=== PATIENT | female | born 1990 | race Caucasian/White ===

== ENCOUNTER 2018-12-09 11:25 | Inpatient (IN) | payer OTHER ==
[2018-12-09] MEDS ORDERED: Misoprostol 25 MCG (1/4 of 100 MCG) Tab VAG PRN ×2 (18:54)
[2018-12-09] MEDS ORDERED: Misoprostol 25 MCG (1/4 of 100 MCG) Tab PO PRN ×2 (18:54)
[2018-12-09] MEDS ORDERED: Terbutaline 1 MG/ML SDV SUBCUT PRN (18:54)
[2018-12-09] MEDS ORDERED: Water For Irrigation,Sterile 1,000 ML Container IRR PRN (18:58)
[2018-12-09] MEDS ORDERED: Misoprostol 200 MCG Tab PO PRN (18:58)
[2018-12-09] MEDS ORDERED: Sodium Chloride 0.9% 2.5 ML Syringe FLUSH PRN (18:58)
[2018-12-09] MEDS ORDERED: Tranexamic Acid 1,000 MG in Sodium Chloride 0.9% 100 ML IV PRN (18:58)
[2018-12-09] MEDS ORDERED: Butorphanol 1 MG/ML SDV IVPUSH PRN (18:58)
[2018-12-09] MEDS ORDERED: Methylergonovine 0.2 MG/1 ML Amp IM PRN (18:58)
[2018-12-09] MEDS ORDERED: Sodium Chloride 0.9% 10 ML Syringe FLUSH PRN (18:58)
[2018-12-09] MEDS ORDERED: Carboprost Tromethamine 250 MCG/1 ML Amp IM PRN (18:58)
[2018-12-09] MEDS ORDERED: Lidocaine 1% 50 ML MDV INJECT PRN (18:58)
[2018-12-09] MEDS ORDERED: Sodium Chloride 0.9% 10 ML SDV IV PRN (18:58)
[2018-12-09] MEDS ORDERED: Nalbuphine 10 MG/1 ML Vial IVPUSH PRN (18:58)
[2018-12-09] MEDS ORDERED: Oxytocin/0.9 % Sodium Chloride 30 UNIT/500 ML BAG IV SCH ×2 (19:00)
[2018-12-09] MEDS: Lactated Ringers 1,000 ML IV SCH ×2 (19:22→23:21)
--- NOTE | 2018-12-09 21:55 | PCM.LDHP ---
L&D History of Present Illness - General Date of Service: 12/09/18 Admit Problem/Dx: Patient Status Order with Admit Dx/Problem 12/09/18 18:58 Patient Status [ADT] Routine Admission Diagnosis/Problem Admission Diagnosis/Problem Elective induction of labor planned 12/09/18 21:51 28yo EDC 12/03/2018 40 6/7wks A+, RI, GBS neg. IOL but berhane well. Source of Information: Patient History Limitations: Reports: No Limitations - History of Present Illness Improves with: Reports: None Worsens with: Reports: None Associated Symptoms: Reports: N - Related Data Allergies/Adverse Reactions: Allergies Allergy/AdvReac Type Severity Reaction Status Date / Time No Known Allergies Allergy Verified 12/09/18 18:54 Home Medications: Home Meds PNV95/Ferrous Fumarate/FA [ Tablet] 1 tab PO DAILY 09/29/18 [History] Past Medical History HEENT History: Reports: Impaired Vision, Other (See Below) Other HEENT History: myopia, wears glasses Cardiovascular History: Reports: None Respiratory History: Reports: None Gastrointestinal History: Reports: Colon Polyp, Gastritis, Hemorrhoids, PUD, Other (See Below) Other Gastrointestinal History: hematochezia, blood in stool, fatty liver, gastric ulcer, high grade dysplasia in colonic adenoma Genitourinary History: Reports: None, UTI, Recurrent 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: 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, Other (See Below) Other OB/BYN History: irreg menses Musculoskeletal History: Reports: Back Pain, Chronic Neurological History: Reports: Headaches, Chronic Psychiatric History: Reports: None, Other (See Below) Other Psychiatric History: atypical nevi Endocrine/Metabolic History: Reports: Other (See Below) Other Endocrine/Metabolic History: fatigue Hematologic History: Reports: None Immunologic History: Reports: None Oncologic (Cancer) History: Reports: None - Past Surgical History Head Surgeries/Procedures: Reports: None HEENT Surgical History: Reports: Oral Surgery, Other (See Below) Other HEENT Surgeries/Procedures: teeth extraction Cardiovascular Surgical History: Reports: None GI Surgical History: Reports: Colonoscopy, EGD Female Surgical History: Reports: None Male Surgical History: Reports: None Endocrine Surgical History: Reports: None Neurological Surgical History: Reports: None Dermatological Surgical History: Reports: Other (See Below) Social & Family History - Caffeine Use Caffeine Use: Reports: Coffee H&P Review of Systems - Review of Systems: Review Of Systems: See Below General: Reports: No Symptoms HEENT: Reports: No Symptoms Pulmonary: Reports: No Symptoms Cardiovascular: Reports: No Symptoms Gastrointestinal: Reports: No Symptoms Genitourinary: Reports: No Symptoms Musculoskeletal: Reports: No Symptoms Skin: Reports: No Symptoms Psychiatric: Reports: No Symptoms Neurological: Reports: No Symptoms Hematologic/Lymphatic: Reports: No Symptoms Immunologic: Reports: No Symptoms L&D Exam - Exam Exam: See Below - Vital Signs Weight: 122.47 kg - OB Specific Contraction Intensity: Moderate Movement: Active Heart Tones: Present Heart Tones per Min: 150 Heart Rate (FHR) Variability: Moderate (6-25 bmp) Presentation: Vertex - Su Score Su Score Cervix Position: Midposition Su Score Consistency: Soft Su Score Effacement: 51-70% Su Score Dilation: 3-4 cm Su Score 's Station: -2 Su Score Total: 8 - Exam General: Alert, Oriented, Cooperative HEENT: Hearing Intact Lungs: Normal Respiratory Effort GI/Abdominal Exam: Soft Rectal Exam: Deferred Genitourinary: Cervical dilitation Back Exam: Normal Inspection Extremities: Normal Inspection, Normal Range of Motion, Non-Tender, No Pedal Edema, Normal Capillary Refill Skin: Warm, Dry, Intact Neurological: Cranial Nerves Intact, Normal Speech, Normal Tone Psychiatric: Alert, Normal Affect, Normal Mood - Patient Data Lab Results Last 24 hrs: Laboratory Results - last 24 hr 12/09/18 12/09/18 Range/Units 19:37 19:37 WBC 14.33 H (4.0-11.0) K/uL RBC 4.41 (4.30-5.90) M/uL Hgb 12.0 (12.0-16.0) g/dL Hct 36.7 (36.0-46.0) % MCV 83.2 (80.0-98.0) fL MCH 27.2 (27.0-32.0) pg MCHC 32.7 (31.0-37.0) g/dL RDW Std Deviation 44.9 (28.0-62.0) fl RDW Coeff of Miki 15 (11.0-15.0) % Plt Count 207 (150-400) K/uL MPV 11.00 (7.40-12.00) fL Nucleated RBC % 0.0 /100WBC Nucleated RBCs # 0 K/uL Blood Type A POSITIVE Antibody Screen NEGATIVE Result Diagrams: 12/09/18 19:37 - Problem List (1) Supervision of normal IUP (intrauterine ) in primigravida SNOMED Code(s): 60503853, 867585294, 834134748, 252747419 ICD Code: Z34.00 - ENCNTR FOR SUPRVSN OF NORMAL FIRST , UNSP TRIMESTER Status: Acute Priority: High Current Visit: Yes Qualifiers: Trimester: third trimester Qualified Code(s): Z34.03 - Encounter for supervision of normal first , third trimester Problem List Initiated/Reviewed/Updated: Yes Orders Last 24hrs: Active Orders 24 hr Category Date Time Status Patient Status [ADT] Routine ADT 12/09/18 18:58 Active Communication Order [RC] ASDIRECTED Care 12/09/18 18:55 Active Communication Order [RC] ASDIRECTED Care 12/09/18 18:55 Active Communication Order [RC] ASDIRECTED Care 12/09/18 18:55 Active May Shower [RC] ASDIRECTED Care 12/09/18 18:58 Active Notify Provider [RC] PRN Care 12/09/18 18:55 Active Notify Provider [RC] PRN Care 12/09/18 18:55 Active Notify Provider [RC] PRN Care 12/09/18 18:58 Active Notify Provider [RC] STAT Care 12/09/18 18:55 Active Oxygen Therapy [RC] ASDIRECTED Care 12/09/18 18:55 Active Up ad Bettina [RC] ASDIRECTED Care 12/09/18 18:58 Active Vital Signs [RC] PER UNIT ROUTINE Care 12/09/18 18:58 Active Regular Diet [DIET] Diet 12/09/18 Dinner Active Butorphanol [Stadol] Med 12/09/18 18:58 Active 1 mg IVPUSH Q1H PRN Carboprost Tromethamine [Hemabate DS] Med 12/09/18 18:58 Active 250 mcg IM ASDIRECTED PRN Lactated Ringers [Ringers, Lactated] 1,000 ml Med 12/09/18 19:00 Active IV ASDIRECTED Lidocaine 1% [Xylocaine 1%] Med 12/09/18 18:58 Active 50 ml INJECT ONETIME PRN Methylergonovine [Methergine] Med 12/09/18 18:58 Active 0.2 mg IM ASDIRECTED PRN Nalbuphine [Nubain] Med 12/09/18 18:58 Active 10 mg IVPUSH Q1H PRN Oxytocin/0.9 % Sodium Chloride [Oxytocin 30 Unit/500 ML Med 12/09/18 19:00 Active -NS] 30 unit in 500 ml IV .ONCE Oxytocin/0.9 % Sodium Chloride [Oxytocin 30 Unit/500 ML Med 12/09/18 19:00 Active -NS] 30 unit in 500 ml IV TITRATE Sodium Chloride 0.9% [Normal Saline] Med 12/09/18 18:58 Active 10 ml IV ASDIRECTED PRN Sodium Chloride 0.9% [Saline Flush] Med 12/09/18 18:58 Active 10 ml FLUSH ASDIRECTED PRN Sodium Chloride 0.9% [Saline Flush] Med 12/09/18 18:58 Active 2.5 ml FLUSH ASDIRECTED PRN Terbutaline [Brethine] Med 12/09/18 18:54 Active 0.25 mg SUBCUT ASDIRECTED PRN Tranexamic Acid [Cyklokapron] 1,000 mg Med 12/09/18 18:58 Active Sodium Chloride 0.9% [Normal Saline] 100 ml IV ONETIME Water For Irrigation,Sterile [Sterile Water for Med 12/09/18 18:58 Active Irrigation] 1,000 ml IRR ASDIRECTED PRN miSOPROStol [Cytotec] Med 12/09/18 18:58 Active 200 mcg PO ONETIME PRN miSOPROStol [Cytotec] Med 12/09/18 18:54 Active 25 mcg PO ONETIME PRN miSOPROStol [Cytotec] Med 12/09/18 18:54 Active 25 mcg PO Q4H PRN miSOPROStol [Cytotec] Med 12/09/18 18:54 Active 25 mcg VAG ONETIME PRN miSOPROStol [Cytotec] Med 12/09/18 18:54 Active 25 mcg VAG Q4H PRN Scalp Electrode [WOMSER] Per Unit Routine Oth 12/09/18 18:58 Ordered Medication Administration Instruction [OM.PC] Q3H Oth 12/09/18 19:00 Ordered Peripheral IV Insertion Adult [OM.PC] Routine Oth 12/09/18 18:58 Ordered Resuscitation Status Routine Resus Stat 12/09/18 18:58 Ordered Medication Orders Butorphanol Tartrate (Stadol) 1 mg IVPUSH Q1H PRN PRN Reason: Pain Carboprost Tromethamine (Hemabate Ds) 250 mcg IM ASDIRECTED PRN PRN Reason: Post Hemorrhage Oxytocin/Sodium Chloride (Oxytocin 30 Unit/500 Ml-Ns) 30 unit in 500 mls @ 2 mls/hr IV TITRATE YANET; Protocol Lactated Ringer's (Ringers, Lactated) 1,000 mls @ 150 mls/hr IV ASDIRECTED YANET Last Admin: 12/09/18 19:22 Dose: 150 mls/hr Oxytocin/Sodium Chloride (Oxytocin 30 Unit/500 Ml-Ns) 30 unit in 500 mls @ 500 mls/hr IV .ONCE YANET Tranexamic Acid 1,000 mg/ (Sodium Chloride) 110 mls @ 660 mls/hr IV ONETIME PRN PRN Reason: Bleeding Lidocaine HCl (Xylocaine 1%) 50 ml INJECT ONETIME PRN PRN Reason: Laceration repair Methylergonovine Maleate (Methergine) 0.2 mg IM ASDIRECTED PRN PRN Reason: Post Hemorrhage Misoprostol (Cytotec) 25 mcg VAG ONETIME PRN PRN Reason: Cervical Ripening Misoprostol (Cytotec) 25 mcg VAG Q4H PRN PRN Reason: Cervical Ripening Misoprostol (Cytotec) 25 mcg PO ONETIME PRN PRN Reason: Cervical Ripening Misoprostol (Cytotec) 25 mcg PO Q4H PRN PRN Reason: Cervical Ripening Misoprostol (Cytotec) 200 mcg PO ONETIME PRN PRN Reason: Post Hemorrhage Nalbuphine HCl (Nubain) 10 mg IVPUSH Q1H PRN PRN Reason: Pain (severe 7-10) Sodium Chloride (Saline Flush) 10 ml FLUSH ASDIRECTED PRN PRN Reason: Keep Vein Open Sodium Chloride (Saline Flush) 2.5 ml FLUSH ASDIRECTED PRN PRN Reason: Keep Vein Open Sodium Chloride (Normal Saline) 10 ml IV ASDIRECTED PRN PRN Reason: IV Use Sterile Water (Sterile Water For Irrigation) 1,000 ml IRR ASDIRECTED PRN PRN Reason: delivery Terbutaline Sulfate (Brethine) 0.25 mg SUBCUT ASDIRECTED PRN PRN Reason: Tacysystole Assessment/Plan Comment:: IOL A: 28yo EDC 12/03/2018 40 6/7wks A+, RI, GBS neg. IOL but berhane well. P: Admit, epidural now, anticipate . Dr Ng updated.
--- NOTE | 2018-12-09 23:22 | PCM.PREANE ---
Preanesthetic Assessment - Anesthesia/Transfusion/Family Hx Anesthesia History: Prior Anesthesia Without Reaction Family History of Anesthesia Reaction: No Transfusion History: No Prior Transfusion(s) - Review of Systems General: No Symptoms Pulmonary: No Symptoms Cardiovascular: No Symptoms, Orthopnea Gastrointestinal: No Symptoms Neurological: No Symptoms Other: Reports: None - Physical Assessment Height: 5 ft 6 in Weight: 123.377 kg ASA Class: 2 Mental Status: Alert & Oriented x3 Airway Class: Mallampati = 2 Dentition: Reports: Normal Dentition Thyro-Mental Finger Breadths: 3 Mouth Opening Finger Breadths: 3 ROM/Head Extension: Full Lungs: Clear to Auscultation, Normal Respiratory Effort Cardiovascular: Regular Rate, Regular Rhythm - Lab Values: Laboratory Last Values WBC 14.33 K/uL (4.0-11.0) H 12/09/18 19:37 RBC 4.41 M/uL (4.30-5.90) 12/09/18 19:37 Hgb 12.0 g/dL (12.0-16.0) 12/09/18 19:37 Hct 36.7 % (36.0-46.0) 12/09/18 19:37 MCV 83.2 fL (80.0-98.0) 12/09/18 19:37 MCH 27.2 pg (27.0-32.0) 12/09/18 19:37 MCHC 32.7 g/dL (31.0-37.0) 12/09/18 19:37 RDW Std Deviation 44.9 fl (28.0-62.0) 12/09/18 19:37 RDW Coeff of Miki 15 % (11.0-15.0) 12/09/18 19:37 Plt Count 207 K/uL (150-400) 12/09/18 19:37 MPV 11.00 fL (7.40-12.00) 12/09/18 19:37 Nucleated RBC % 0.0 /100WBC 12/09/18 19:37 Nucleated RBCs # 0 K/uL 12/09/18 19:37 Blood Type A POSITIVE 12/09/18 19:37 Antibody Screen NEGATIVE 12/09/18 19:37 - Allergies Allergies/Adverse Reactions: Allergies Allergy/AdvReac Type Severity Reaction Status Date / Time No Known Allergies Allergy Verified 12/09/18 18:54 - Acknowledgements Anesthesia Type Planned: Epidural Pt an Appropriate Candidate for the Planned Anesthesia: Yes Alternatives and Risks of Anesthesia Discussed w Pt/Guardian: Yes Pt/Guardian Understands and Agrees with Anesthesia Plan: Yes PreAnesthesia Questionnaire HEENT History: Reports: Impaired Vision, Other (See Below) Other HEENT History: myopia, wears glasses Cardiovascular History: Reports: None Respiratory History: Reports: None Gastrointestinal History: Reports: Colon Polyp, Gastritis, GERD, Hemorrhoids, PUD, Other (See Below) Other Gastrointestinal History: hematochezia, blood in stool, fatty liver, gastric ulcer, high grade dysplasia in colonic adenoma Genitourinary History: Reports: None, UTI, Recurrent 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: 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, Other (See Below) Other OB/BYN History: irreg menses Musculoskeletal History: Reports: Back Pain, Chronic Neurological History: Reports: Headaches, Chronic Psychiatric History: Reports: None, Other (See Below) Other Psychiatric History: atypical nevi Endocrine/Metabolic History: Reports: Obesity/BMI 30+, Other (See Below) Other Endocrine/Metabolic History: fatigue Hematologic History: Reports: None Immunologic History: Reports: None Oncologic (Cancer) History: Reports: None Dermatologic History: Reports: None - Infectious Disease History Infectious Disease History: Reports: None - Past Surgical History Head Surgeries/Procedures: Reports: None HEENT Surgical History: Reports: Oral Surgery, Other (See Below) Other HEENT Surgeries/Procedures: teeth extraction Cardiovascular Surgical History: Reports: None GI Surgical History: Reports: Colonoscopy, EGD Female Surgical History: Reports: None Endocrine Surgical History: Reports: None Neurological Surgical History: Reports: None Dermatological Surgical History: Reports: Other (See Below) - SUBSTANCE USE Smoking Status *Q: Never Smoker Second Hand Smoke Exposure: No Recreational Drug Use History: No - HOME MEDS Home Medications: Home Meds PNV95/Ferrous Fumarate/FA [ Tablet] 1 tab PO DAILY 09/29/18 [History] - CURRENT (IN HOUSE) MEDS Current Meds: Current Medications Butorphanol Tartrate (Stadol) 1 mg IVPUSH Q1H PRN PRN Reason: Pain Carboprost Tromethamine (Hemabate Ds) 250 mcg IM ASDIRECTED PRN PRN Reason: Post Hemorrhage Oxytocin/Sodium Chloride (Oxytocin 30 Unit/500 Ml-Ns) 30 unit in 500 mls @ 2 mls/hr IV TITRATE YANET; Protocol Lactated Ringer's (Ringers, Lactated) 1,000 mls @ 150 mls/hr IV ASDIRECTED YANET Last Admin: 12/09/18 19:22 Dose: 150 mls/hr Oxytocin/Sodium Chloride (Oxytocin 30 Unit/500 Ml-Ns) 30 unit in 500 mls @ 500 mls/hr IV .ONCE YANET Tranexamic Acid 1,000 mg/ (Sodium Chloride) 110 mls @ 660 mls/hr IV ONETIME PRN PRN Reason: Bleeding Lidocaine HCl (Xylocaine 1%) 50 ml INJECT ONETIME PRN PRN Reason: Laceration repair Methylergonovine Maleate (Methergine) 0.2 mg IM ASDIRECTED PRN PRN Reason: Post Hemorrhage Misoprostol (Cytotec) 25 mcg VAG ONETIME PRN PRN Reason: Cervical Ripening Misoprostol (Cytotec) 25 mcg VAG Q4H PRN PRN Reason: Cervical Ripening Misoprostol (Cytotec) 25 mcg PO ONETIME PRN PRN Reason: Cervical Ripening Misoprostol (Cytotec) 25 mcg PO Q4H PRN PRN Reason: Cervical Ripening Misoprostol (Cytotec) 200 mcg PO ONETIME PRN PRN Reason: Post Hemorrhage Nalbuphine HCl (Nubain) 10 mg IVPUSH Q1H PRN PRN Reason: Pain (severe 7-10) Sodium Chloride (Saline Flush) 10 ml FLUSH ASDIRECTED PRN PRN Reason: Keep Vein Open Sodium Chloride (Saline Flush) 2.5 ml FLUSH ASDIRECTED PRN PRN Reason: Keep Vein Open Sodium Chloride (Normal Saline) 10 ml IV ASDIRECTED PRN PRN Reason: IV Use Sterile Water (Sterile Water For Irrigation) 1,000 ml IRR ASDIRECTED PRN PRN Reason: delivery Terbutaline Sulfate (Brethine) 0.25 mg SUBCUT ASDIRECTED PRN PRN Reason: Tacysystole
[2018-12-09] MEDS ORDERED: Lidocaine HCl/EPINEPHrine 5 ML IJ ONE (23:25)
[2018-12-10] MEDS: Lactated Ringers 1,000 ML IV SCH (00:35)
[2018-12-10] MEDS ORDERED: Bupivacaine 0.5% 10 ML SDV ONE (06:34)
[2018-12-10] MEDS ORDERED: Acetaminophen 500 MG Tab ONE (13:34)
[2018-12-10] MEDS ORDERED: Ibuprofen 800 MG Tab PO PRN (14:04)
[2018-12-10] MEDS ORDERED: oxyCODONE 5 MG Tab PO PRN (14:04)
[2018-12-10] MEDS ORDERED: Ibuprofen 400 MG Tab PO PRN (14:04)
[2018-12-10] MEDS ORDERED: Witch Hazel Medicated Pads 40/Jar TOP PRN (14:04)
[2018-12-10] MEDS ORDERED: Acetaminophen 500 MG Tab PO PRN ×2 (14:04)
[2018-12-10] MEDS ORDERED: Docusate Sodium 100 MG Cap PO PRN (14:04)
[2018-12-10] MEDS ORDERED: Lanolin 100% Cream 7 GM Tube TOP PRN (14:04)
[2018-12-10] MEDS ORDERED: Benzocaine/Menthol 20%-0.5% Spray 78 GM Cannister TOP PRN (14:04)
[2018-12-10] MEDS ORDERED: Bisacodyl 10 MG Supp RECTAL PRN (14:04)
--- NOTE | 2018-12-10 14:55 | OR ---
SURGEON: rBy Ng MD DATE OF PROCEDURE: DELIVERY NOTE: Ms. Wilkes is 28-year-old primigravida. She is followed in our clinic primarily by me. She is 40+ weeks. She is admitted for induction and she responded to that, and she went into active labor. In the morning when I examined the patient, she was almost complete with bulging bag of water. I did an amniotomy with clear fluid and heart rate was essentially normal, vital signs were essentially normal, and the patient had epidural. Soon after that, the patient became complete-complete and she commenced pushing, and she pushed in excess of 2.5 hours. At that time, I was called to evaluate the patient. At the time I evaluated her, she was complete vertex, +2, almost +3, and the patient showed sign of exhaustion. After consultation with the parent, we agreed to do a vacuum extraction. I used kiwi vacuum instruction and the fetus was delivered with a kiwi instruction with 2 pull without any problem. Male fetus. score reported to be 8 and 9, and the weight is , and the placenta delivered spontaneous, complete, and intact. There was a small lateral labial laceration on the left labia that was repaired with 3-0 Vicryl without any problem. There is no perineal or any other laceration. The estimated blood loss during this delivery is 350-400 mL. heart rate was category 1 through the entire process of labor. There was no complication in the labor or the . BLAIRE / ISIDRO /[id number]
[2018-12-11 04:33] VITALS: BP 146/81
--- NOTE | 2018-12-11 08:54 | PCM48HPAN ---
Post Anesthesia Note - EVALUATION WITHIN 48HRS OF ANESTHETIC Vital Signs in Normal Range: Yes Patient Participated in Evaluation: Yes Respiratory Function Stable: Yes Airway Patent: Yes Cardiovascular Function Stable: Yes Hydration Status Stable: Yes Pain Control Satisfactory: Yes Nausea and Vomiting Control Satisfactory: Yes Mental Status Recovered: Yes Resp Rate: 17 - COMMENTS/OBSERVATIONS Free Text/Narrative:: Denies any complaints
--- NOTE | 2018-12-11 09:54 | PCM.DCSUM1 ---
Discharge Summary - Hospital Course Free Text/Narrative:: Discharge home with infant. Follow up in 6 weeks for visit. Diagnosis: Stroke: No - Discharge Data Discharge Date: 12/11/18 Discharge Disposition: Home, Self-Care 01 Condition: Good - Discharge Diagnosis/Problem(s) (1) Supervision of normal IUP (intrauterine ) in primigravida SNOMED Code(s): 42833727, 617101644, 956188954, 520079835 ICD Code: Z34.00 - ENCNTR FOR SUPRVSN OF NORMAL FIRST , UNSP TRIMESTER Status: Acute Priority: High Current Visit: Yes Qualifiers: Trimester: third trimester Qualified Code(s): Z34.03 - Encounter for supervision of normal first , third trimester - Patient Instructions Diet: Usual Diet as Tolerated Activity: As Tolerated, No Strenuous Activities, Rest and Relax Today Driving: May Drive Today Showering/Bathing: May Shower Notify Provider of: Fever, Increased Pain, Swelling and Redness, Nausea and/or Vomiting - Discharge Plan *PRESCRIPTION DRUG MONITORING PROGRAM REVIEWED*: Not Applicable *COPY OF PRESCRIPTION DRUG MONITORING REPORT IN PATIENT AYANNA: Not Applicable Home Medications: Home Meds PNV95/Ferrous Fumarate/FA [ Tablet] 1 tab PO DAILY 09/29/18 [History] Oxygen Therapy Mode: Room Air Referrals: [facility] [Outside] Bry Ng MD [Physician] - 01/24/19 9:30 am - Discharge Summary/Plan Comment DC Time >30 min.: Yes - General Info Date of Service: 12/11/18 Admission Dx/Problem (Free Text: Patient Status Order with Admit Dx/Problem 12/09/18 18:58 Patient Status [ADT] Routine Admission Diagnosis/Problem Admission Diagnosis/Problem Elective induction of labor planned 12/09/18 21:51 28yo EDC 12/03/2018 40 6/7wks A+, RI, GBS neg. IOL but berhane well. Functional Status: Reports: Pain Controlled, Tolerating Diet, Ambulating, Urinating - Review of Systems General: Reports: No Symptoms HEENT: Reports: No Symptoms Pulmonary: Reports: No Symptoms Cardiovascular: Reports: No Symptoms Gastrointestinal: Reports: No Symptoms Genitourinary: Reports: No Symptoms Musculoskeletal: Reports: No Symptoms Skin: Reports: No Symptoms Neurological: Reports: No Symptoms Psychiatric: Reports: No Symptoms - Patient Data Vitals - Most Recent: Last Vital Signs Temp 36.3 C 12/11/18 04:32 Pulse 92 12/11/18 04:32 Resp 17 12/11/18 08:54 BP 146/81 H 12/11/18 04:32 Pulse Ox 96 12/11/18 04:32 Weight - Most Recent: 123.377 kg Lab Results - Last 24 hrs: Laboratory Results - last 24 hr 12/11/18 Range/Units 05:24 Hgb 9.3 L (12.0-16.0) g/dL Hct 29.1 L (36.0-46.0) % Med Orders - Current: Current Medications Acetaminophen (Tylenol Extra Strength) 500 mg PO Q4H PRN PRN Reason: Pain Acetaminophen (Tylenol Extra Strength) 1,000 mg PO Q4H PRN PRN Reason: Pain Benzocaine/Menthol (Dermoplast Pain Relief 20%-0.5% [place]) 78 gm TOP ASDIRECTED PRN PRN Reason: Perineal Comfort Measure Bisacodyl (Dulcolax) 10 mg RECTAL ONETIME PRN PRN Reason: Constipation Docusate Sodium (Colace) 100 mg PO BID PRN PRN Reason: Constipation Last Admin: 12/10/18 23:00 Dose: 100 mg Emollient Ointment (Lansinoh Hpa) 0 gm TOP ASDIRECTED PRN PRN Reason: Sore Nipples Ibuprofen (Motrin) 400 mg PO Q4H PRN PRN Reason: Pain Ibuprofen (Motrin) 800 mg PO Q6H PRN PRN Reason: Pain Last Admin: 12/10/18 22:58 Dose: 800 mg Oxycodone HCl (Oxycodone) 5 mg PO Q2H PRN PRN Reason: Pain Witch Chani (Tucks) 1 pad TOP ASDIRECTED PRN PRN Reason: comfort care Discontinued Medications Acetaminophen (Tylenol Extra Strength) Confirm Administered Dose 1,000 mg .ROUTE .STK-MED ONE Stop: 12/10/18 13:35 Last Admin: 12/10/18 13:37 Dose: 1,000 mg Bupivacaine HCl (Sensorcaine-Mpf 0.5%) Confirm Administered Dose 10 ml .ROUTE .STK-MED ONE Stop: 12/10/18 06:35 Last Admin: 12/10/18 19:11 Dose: Not Given Butorphanol Tartrate (Stadol) 1 mg IVPUSH Q1H PRN PRN Reason: Pain Carboprost Tromethamine (Hemabate Ds) 250 mcg IM ASDIRECTED PRN PRN Reason: Post Hemorrhage Oxytocin/Sodium Chloride (Oxytocin 30 Unit/500 Ml-Ns) 30 unit in 500 mls @ 2 mls/hr IV TITRATE YANET; Protocol Last Titration: 12/10/18 03:54 Dose: 6 munits/min, 6 mls/hr Lactated Ringer's (Ringers, Lactated) 1,000 mls @ 150 mls/hr IV ASDIRECTED YANET Last Admin: 12/10/18 00:35 Dose: 150 mls/hr Oxytocin/Sodium Chloride (Oxytocin 30 Unit/500 Ml-Ns) 30 unit in 500 mls @ 500 mls/hr IV .ONCE YANET Tranexamic Acid 1,000 mg/ (Sodium Chloride) 110 mls @ 660 mls/hr IV ONETIME PRN PRN Reason: Bleeding Fentanyl/Bupivacaine HCl (Iizvoumw-Hrwte-Np 2 Mcg/Ml-0.125%) Confirm Administered Dose 100 mls @ as directed .ROUTE .STK-MED ONE Stop: 12/09/18 23:26 Last Admin: 12/10/18 19:12 Dose: Not Given Fentanyl/Bupivacaine HCl (Fpqxuash-Btnym-Cz 2 Mcg/Ml-0.125%) Confirm Administered Dose 100 mls @ as directed .ROUTE .STK-MED ONE Stop: 12/10/18 06:39 Last Admin: 12/10/18 19:12 Dose: Not Given Lidocaine HCl (Xylocaine 1%) 50 ml INJECT ONETIME PRN PRN Reason: Laceration repair Lidocaine/Epinephrine (Lidocaine 1.5%-Epi 1:200,000) Confirm Administered Dose 5 ml IJ .STK-MED ONE Stop: 12/09/18 23:26 Last Admin: 12/10/18 19:11 Dose: Not Given Methylergonovine Maleate (Methergine) 0.2 mg IM ASDIRECTED PRN PRN Reason: Post Hemorrhage Misoprostol (Cytotec) 25 mcg VAG ONETIME PRN PRN Reason: Cervical Ripening Misoprostol (Cytotec) 25 mcg VAG Q4H PRN PRN Reason: Cervical Ripening Misoprostol (Cytotec) 25 mcg PO ONETIME PRN PRN Reason: Cervical Ripening Misoprostol (Cytotec) 25 mcg PO Q4H PRN PRN Reason: Cervical Ripening Misoprostol (Cytotec) 200 mcg PO ONETIME PRN PRN Reason: Post Hemorrhage Nalbuphine HCl (Nubain) 10 mg IVPUSH Q1H PRN PRN Reason: Pain (severe 7-10) Sodium Chloride (Saline Flush) 10 ml FLUSH ASDIRECTED PRN PRN Reason: Keep Vein Open Sodium Chloride (Saline Flush) 2.5 ml FLUSH ASDIRECTED PRN PRN Reason: Keep Vein Open Sodium Chloride (Normal Saline) 10 ml IV ASDIRECTED PRN PRN Reason: IV Use Sterile Water (Sterile Water For Irrigation) 1,000 ml IRR ASDIRECTED PRN PRN Reason: delivery Terbutaline Sulfate (Brethine) 0.25 mg SUBCUT ASDIRECTED PRN PRN Reason: Tacysystole - Exam General: Reports: Alert, Oriented, Cooperative, No Acute Distress Lungs: Reports: Normal Respiratory Effort GI/Abdominal Exam: Soft (Female) Exam: Deferred, Vaginal Bleeding Rectal (Female) Exam: Deferred Back Exam: Reports: Normal Inspection Extremities: Normal Range of Motion, No Pedal Edema Skin: Reports: Warm, Dry, Intact Wound/Incisions: Reports: Healing Well Neurological: Reports: No New Focal Deficit, Normal Gait, Normal Speech, Normal Tone, Strength Equal Bilateral Psy/Mental Status: Reports: Alert, Normal Affect, Normal Mood
== END 2018-12-11 13:40 | disposition home or self-care (01) | DRG 807 ==
LOC: MW.OB 11:25 → UNDOADMOB 18:38 → OBSVTOIN 12-10 11:25 → MW.OB 12-10 18:00
PROVIDERS: ADMIT Obstetrics & Gynecology; ATTEND Obstetrics & Gynecology
PROC: 3E0P7VZ Introduction of Hormone into Female Reproductive, Via Natural or Artificial Opening (ICD-10-PCS; 2018-12-09)
PROC: 00HU33Z Insertion of Infusion Device into Spinal Canal, Percutaneous Approach (ICD-10-PCS; 2018-12-09)
PROC: 3E0R3BZ Introduction of Anesthetic Agent into Spinal Canal, Percutaneous Approach (ICD-10-PCS; 2018-12-09)
PROC: 10D07Z6 Extraction of Products of Conception, Vacuum, Via Natural or Artificial Opening (ICD-10-PCS; principal; 2018-12-10)
PROC: 10907ZC Drainage of Amniotic Fluid, Therapeutic from Products of Conception, Via Natural or Artificial Opening (ICD-10-PCS; 2018-12-10)
DX: O70.0 First degree perineal laceration during delivery (principal); Z37.0 Single live birth; Z3A.40 40 weeks gestation of pregnancy
CPT/HCPCS: 36415; 51702; 59025; 59409; 85014; 85018; 85027; 86850; 86900; 86901; A9270-GY; J2590; J3490; J7120

== ENCOUNTER 2019-07-21 11:56 | Day surgery (SDC) | payer OTHER ==
[~2019-07-21 11:56] MED LIST: Lactated Ringers 1,000 ML IV SCH; Sodium Chloride 0.9% 10 ML SDV IV PRN; Sodium Chloride 0.9% 10 ML Syringe FLUSH PRN; Sodium Chloride 0.9% 2.5 ML Syringe FLUSH PRN
--- NOTE | 2019-07-21 13:52 | PCM.PREANE ---
Preanesthetic Assessment - Anesthesia/Transfusion/Family Hx Anesthesia History: Prior Anesthesia Without Reaction Family History of Anesthesia Reaction: No Transfusion History: No Prior Transfusion(s) Intubation History: Unknown - Review of Systems General: No Symptoms Pulmonary: No Symptoms Cardiovascular: No Symptoms Gastrointestinal: Other (change in bowel habits, h/o colon polyps) Neurological: No Symptoms Other: Reports: None - Physical Assessment Vital Signs: Last Vital Signs Temp 36.9 C 07/21/19 12:00 Pulse 83 07/21/19 12:00 Resp 16 07/21/19 12:00 BP 134/56 L 07/21/19 12:00 Pulse Ox 96 07/21/19 12:00 Height: 5 ft 6 in Weight: 122.924 kg ASA Class: 2 Mental Status: Alert & Oriented x3 Airway Class: Mallampati = 1 Dentition: Reports: Normal Dentition Thyro-Mental Finger Breadths: 3 Mouth Opening Finger Breadths: 3 ROM/Head Extension: Full Lungs: Clear to Auscultation, Normal Respiratory Effort Cardiovascular: Regular Rate, Regular Rhythm - Lab Values: Laboratory Last Values Urine HCG, Qual NEGATIVE (NEGATIVE) 07/21/19 12:13 - Allergies Allergies/Adverse Reactions: Allergies Allergy/AdvReac Type Severity Reaction Status Date / Time No Known Allergies Allergy Verified 07/21/19 13:22 - Blood Blood Available: No - Anesthesia Plan Pre-Op Medication Ordered: None - Acknowledgements Anesthesia Type Planned: MAC Pt an Appropriate Candidate for the Planned Anesthesia: Yes Alternatives and Risks of Anesthesia Discussed w Pt/Guardian: Yes Pt/Guardian Understands and Agrees with Anesthesia Plan: Yes PreAnesthesia Questionnaire HEENT History: Reports: Other (See Below) Other HEENT History: wears glasses Cardiovascular History: Reports: None Respiratory History: Reports: None Gastrointestinal History: Reports: Colon Polyp, Gastritis, Hemorrhoids, PUD, Other (See Below) Other Gastrointestinal History: hx of high grade dysplasic colon polyp Genitourinary History: Reports: None 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: 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, Musculoskeletal History: Reports: Fracture Other Musculoskeletal History: fx arm as a child Neurological History: Reports: Migraines Psychiatric History: Reports: None Endocrine/Metabolic History: Reports: Obesity/BMI 30+ (BMI 43.7) Hematologic History: Reports: None Immunologic History: Reports: None Oncologic (Cancer) History: Reports: None Dermatologic History: Reports: None - Infectious Disease History Infectious Disease History: Reports: None - Past Surgical History Head Surgeries/Procedures: Reports: None HEENT Surgical History: Reports: Oral Surgery, Other (See Below) Other HEENT Surgeries/Procedures: teeth extraction Cardiovascular Surgical History: Reports: None Respiratory Surgical History: Reports: None GI Surgical History: Reports: Cholecystectomy, Colonoscopy (3 years ago), EGD Female Surgical History: Reports: None Endocrine Surgical History: Reports: None Neurological Surgical History: Reports: None Musculoskeletal Surgical History: Reports: None Dermatological Surgical History: Reports: Other (See Below) - SUBSTANCE USE Smoking Status *Q: Never Smoker - HOME MEDS Home Medications: Home Meds Ibuprofen 2 - 3 tab PO ASDIRECTED PRN 06/29/19 [History] Multivitamin [Multivitamins] 1 tab PO DAILY 07/18/19 [History] - CURRENT (IN HOUSE) MEDS Current Meds: Current Medications Lactated Ringer's (Ringers, Lactated) 1,000 mls @ 125 mls/hr IV ASDIRECTED [facility] Last Admin: 07/21/19 13:19 Dose: 125 mls/hr Sodium Chloride (Saline Flush) 10 ml FLUSH ASDIRECTED PRN PRN Reason: Keep Vein Open Sodium Chloride (Saline Flush) 2.5 ml FLUSH ASDIRECTED PRN PRN Reason: Keep Vein Open Sodium Chloride (Saline Flush) 10 ml FLUSH ASDIRECTED PRN PRN Reason: Keep Vein Open Sodium Chloride (Saline Flush) 2.5 ml FLUSH ASDIRECTED PRN PRN Reason: Keep Vein Open Sodium Chloride (Normal Saline) 10 ml IV ASDIRECTED PRN PRN Reason: IV Use
[2019-07-21] MEDS ORDERED: Propofol 200 MG/20 ML SDV ONE (14:37)
[2019-07-21] MEDS ORDERED: Midazolam 1 MG/ML 2 ML SDV ONE (14:37)
--- NOTE | 2019-07-21 15:23 | PCM.OPNOTE ---
- General Post-Op/Procedure Note Date of Surgery/Procedure: 07/21/19 Operative Procedure(s): Diagnostic colonoscopy Findings: Rectal polyp Pre Op Diagnosis: History of colon polyps Post-Op Diagnosis: rectal polyp Anesthesia Technique: MAC Primary Surgeon: Marjorie Rosales Condition: Good
[2019-07-21 15:25] VITALS: PULSE 78
[2019-07-21 15:30] VITALS: BP 95/52
--- NOTE | 2019-07-21 15:33 | PCM.POSTAN ---
POST ANESTHESIA ASSESSMENT - MENTAL STATUS Mental Status: Alert - VITAL SIGNS Vital Signs: Last Vital Signs Temp 36.9 C 07/21/19 12:00 Pulse 78 07/21/19 15:29 Resp 15 07/21/19 15:29 BP 95/52 L 07/21/19 15:29 Pulse Ox 96 07/21/19 15:29 - RESPIRATORY Respiratory Status: Respiratory Rate WNL - CARDIOVASCULAR CV Status: Pulse Rate WNL - GASTROINTESTINAL GI Status: No Symptoms - POST OP HYDRATION Hydration Status: Adequate & Stable
--- NOTE | 2019-07-21 15:50 | PCM48HPAN ---
Post Anesthesia Note - EVALUATION WITHIN 48HRS OF ANESTHETIC Vital Signs in Normal Range: Yes Patient Participated in Evaluation: Yes Respiratory Function Stable: Yes Airway Patent: Yes Cardiovascular Function Stable: Yes Hydration Status Stable: Yes Pain Control Satisfactory: Yes Nausea and Vomiting Control Satisfactory: Yes Mental Status Recovered: Yes Vital Signs: Last Vital Signs Temp 36.9 C 07/21/19 12:00 Pulse 78 07/21/19 15:29 Resp 15 07/21/19 15:29 BP 95/52 L 07/21/19 15:29 Pulse Ox 96 07/21/19 15:29 - COMMENTS/OBSERVATIONS Free Text/Narrative:: No anesthesia problems
--- NOTE | 2019-07-21 20:54 | OR ---
SURGEON: MARJORIE ROSALES MD DATE OF PROCEDURE: 07/21/2019 PREOPERATIVE DIAGNOSIS: History of colon polyps, change in bowel habits. POSTOPERATIVE DIAGNOSIS: Rectal polyp. PROCEDURE PERFORMED: Diagnostic colonoscopy. PRIMARY SURGEON: Marjorie Rosales MD. ANESTHESIA: MAC. INSTRUMENT USED: Olympus colonoscope. EXTENT OF EXAM: To the cecum. PREPARATION: Good. LIMITATIONS: None. INDICATION FOR EXAMINATION: The patient is a 29-year-old female who has a history of colon polyps. Recently, she has been having changes in her bowel habits. The decision was made to proceed with a diagnostic colonoscopy. The patient and I discussed the procedure, expected perioperative course, and risks including bleeding, infection, or damage to surrounding structures including perforation. She verbalized understanding and wishes to proceed. PROCEDURE IN DETAIL: The patient was brought to the endoscopy suite and placed in a left lateral decubitus position. A time-out was completed verifying the patient's name, age, date of , allergies, and procedure to be performed. Monitored anesthesia care was induced and continuous oxygen was provided via nasal cannula throughout the procedure. After adequate sedation was achieved, a digital rectal exam was performed. This exam was within normal limits. The patient's hemorrhoid appeared to be a normal-sized with no evidence of recent bleeding. A well- lubricated colonoscope was inserted in the rectum and advanced under direct visualization to the level of cecum. The cecum was identified by both visual and anatomic landmarks. A photograph was taken of the cecal cap as well as with the scope retroflexed within the cecum. The scope was then fully withdrawn while examining the color, texture, anatomy, and integrity of the mucosa from the cecum to the anal canal. The patient had normal-appearing colonic mucosa. When the scope was brought into the rectum, however, I did notice one small sessile rectal polyp. This was removed in piecemeal fashion using a cold biopsy forceps. The scope was then retroflexed to allow visualization of the anal canal opening. This appeared normal and a photograph was taken. Scope was straightened out and fully withdrawn. The cecum to anus time was 6 minutes. The patient tolerated the procedure well and was transferred to the PACU in stable condition. ENDOSCOPIC DIAGNOSIS: Rectal polyp. RECOMMENDATIONS: Follow up in clinic in 2 weeks. KONG FELIX /[id number]
== END 2019-07-21 16:00 | disposition home or self-care (01) ==
LOC: MW.SDS 11:56
PROVIDERS: ATTEND Surgery
DX: D12.8 Benign neoplasm of rectum (principal); G43.909 Migraine, unspecified, not intractable, without status migrainosus; E66.9 Obesity, unspecified; Z68.41 Body mass index [BMI] 40.0-44.9, adult; Z86.010 Personal history of colon polyps
CPT/HCPCS: 45380; 81025; J2250; J2704; J7120; 00811

== ENCOUNTER 2020-10-16 09:51 | Inpatient (IN) | payer OTHER ==
[2020-10-16] MEDS ORDERED: Nalbuphine 10 MG/1 ML Vial IVPUSH PRN (10:23)
[2020-10-16] MEDS ORDERED: Carboprost Tromethamine 250 MCG/1 ML Amp IM PRN (10:23)
[2020-10-16] MEDS ORDERED: Butorphanol 1 MG/ML SDV IVPUSH PRN (10:23)
[2020-10-16] MEDS ORDERED: Water For Irrigation,Sterile 1,000 ML Container IRR PRN (10:23)
[2020-10-16] MEDS ORDERED: Sodium Chloride 0.9% 10 ML SDV IV PRN (10:23)
[2020-10-16] MEDS ORDERED: Sodium Chloride 0.9% 10 ML Syringe FLUSH PRN (10:23)
[2020-10-16] MEDS ORDERED: Misoprostol 200 MCG Tab PO PRN (10:23)
[2020-10-16] MEDS ORDERED: Sodium Chloride 0.9% 2.5 ML Syringe FLUSH PRN (10:23)
[2020-10-16] MEDS ORDERED: Methylergonovine 0.2 MG/1 ML Amp IM PRN (10:23)
[2020-10-16] MEDS ORDERED: Tranexamic Acid 1,000 MG in Sodium Chloride 0.9% 100 ML IV PRN (10:23)
[2020-10-16] MEDS ORDERED: Lidocaine 1% 50 ML MDV INJECT PRN (10:23)
[2020-10-16] MEDS ORDERED: Oxytocin/0.9 % Sodium Chloride 30 UNIT/500 ML BAG IV SCH ×2 (10:30→10:45)
[2020-10-16] MEDS ORDERED: Terbutaline 1 MG/ML SDV SUBCUT PRN (10:33)
[2020-10-16] MEDS ORDERED: Misoprostol 25 MCG (1/4 of 100 MCG) Tab VAG PRN ×2 (10:33)
[2020-10-16] MEDS ORDERED: Misoprostol 25 MCG (1/4 of 100 MCG) Tab PO ONE (10:34)
--- NOTE | 2020-10-16 11:17 | PCM.LDHP ---
L&D History of Present Illness - General Date of Service: 10/16/20 Admit Problem/Dx: Patient Status Order with Admit Dx/Problem 10/16/20 10:23 Patient Status [ADT] Routine Admission Diagnosis/Problem Admission Diagnosis/Problem Source of Information: Patient History Limitations: Reports: No Limitations - History of Present Illness Improves with: Reports: None Worsens with: Reports: None Associated Symptoms: Reports: N - Related Data Allergies/Adverse Reactions: Allergies Allergy/AdvReac Type Severity Reaction Status Date / Time No Known Allergies Allergy Verified 09/10/20 09:21 Home Medications: Home Meds Pnv No.95/Ferrous Fum/Folic AC [ Tablet] 1 tab PO DAILY 09/10/20 [History] Past Medical History HEENT History: Reports: Impaired Vision, Other (See Below) Other HEENT History: wears glasses Cardiovascular History: Reports: None Respiratory History: Reports: None Gastrointestinal History: Reports: Colon Polyp, Gastritis, Hemorrhoids, PUD, Other (See Below) Other Gastrointestinal History: hx of high grade dysplasic colon polyp Genitourinary History: Reports: None 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, Musculoskeletal History: Reports: Fracture Other Musculoskeletal History: fx arm as a child Neurological History: Reports: Migraines Psychiatric History: Reports: None Endocrine/Metabolic History: Reports: Obesity/BMI 30+ Hematologic History: Reports: None Immunologic History: Reports: None Oncologic (Cancer) History: Reports: None Dermatologic History: Reports: None - Infectious Disease History Infectious Disease History: Reports: Chicken Pox, Novel Coronavirus - Past Surgical History Head Surgeries/Procedures: Reports: None HEENT Surgical History: Reports: Oral Surgery, Other (See Below) Other HEENT Surgeries/Procedures: teeth extraction Cardiovascular Surgical History: Reports: None Respiratory Surgical History: Reports: None GI Surgical History: Reports: Cholecystectomy, Colonoscopy, EGD Female Surgical History: Reports: None Endocrine Surgical History: Reports: None Neurological Surgical History: Reports: None Musculoskeletal Surgical History: Reports: None Dermatological Surgical History: Reports: Other (See Below) Social & Family History - Family History HEENT: Reports: Glaucoma, Hearing Impairment Cardiac: Reports: Hypertension, Stent Respiratory: Reports: None GI: Reports: None : Reports: None OBGYN: Reports: Musculoskeletal: Reports: None Neurological: Reports: Alzheimers Disease Psychiatric: Reports: Anxiety, Panic Attack Endocrine/Metabolic: Reports: Obesity/MBI 30+ Hematologic: Reports: None Immunologic: Reports: None Dermatologic: Reports: None Oncologic: Reports: None - Caffeine Use Caffeine Use: Reports: Soda H&P Review of Systems - Review of Systems: Review Of Systems: See Below General: Reports: No Symptoms HEENT: Reports: No Symptoms Pulmonary: Reports: No Symptoms Cardiovascular: Reports: No Symptoms Gastrointestinal: Reports: No Symptoms Genitourinary: Reports: No Symptoms Musculoskeletal: Reports: No Symptoms Skin: Reports: No Symptoms Psychiatric: Reports: No Symptoms Neurological: Reports: No Symptoms Hematologic/Lymphatic: Reports: No Symptoms Immunologic: Reports: No Symptoms L&D Exam - Exam Exam: See Below - Vital Signs Weight: 131.995 kg - OB Specific Fundal Height In cm: 47 Contraction Intensity: Mild Movement: Active Heart Tones: Present Presentation: Vertex - Su Score Su Score Cervix Position: Midposition Su Score Consistency: Medium Su Score Effacement: 51-70% Su Score Dilation: 1-2 cm Su Score Infant's Station: -2 Su Score Total: 6 - Exam General: Alert, Oriented HEENT: PERRLA, Conjunctiva Clear, EACs Clear, EOMI, Hearing Intact, Mucosa Moist & [place], Nares Patent, Normal Nasal Septum, Posterior Pharynx Clear, TMs Clear Neck: Supple, Trachea Midline Lungs: Clear to Auscultation, Normal Respiratory Effort Cardiovascular: Regular Rate, Regular Rhythm GI/Abdominal Exam: Normal Bowel Sounds, Soft, Non-Tender, No Organomegaly, No Distention, No Abnormal Bruit, No Mass, Pelvis Stable Rectal Exam: Normal Exam, Normal Rectal Tone Genitourinary: Normal external exam, Normal bimanual exam, Normal speculum exam Back Exam: Normal Inspection, Full Range of Motion Extremities: Normal Inspection, Normal Range of Motion, Non-Tender, No Pedal Edema, Normal Capillary Refill Skin: Warm, Dry, Intact Neurological: Cranial Nerves Intact, Reflexes Equal Bilateral Psychiatric: Alert, Normal Affect, Normal Mood Problem List Initiated/Reviewed/Updated: Yes Orders Last 24hrs: Active Orders 24 hr Category Date Time Status Patient Status [ADT] Routine ADT 10/16/20 10:23 Active Bedrest Bathroom Privileges [RC] ASDIRECTED Care 10/16/20 10:33 Active Communication Order [RC] ASDIRECTED Care 10/16/20 10:33 Active Communication Order [RC] ASDIRECTED Care 10/16/20 10:33 Active Communication Order [RC] ASDIRECTED Care 10/16/20 10:33 Active Heart Tones [RC] CONTINUOUS Care 10/16/20 10:23 Active Non Stress Test [RC] PER UNIT ROUTINE Care 10/16/20 10:23 Active May Shower [RC] ASDIRECTED Care 10/16/20 10:23 Active Notify Provider [RC] PRN Care 10/16/20 10:23 Active Notify Provider [RC] PRN Care 10/16/20 10:33 Active Notify Provider [RC] PRN Care 10/16/20 10:33 Active Notify Provider [RC] STAT Care 10/16/20 10:33 Active Up ad Bettina [RC] ASDIRECTED Care 10/16/20 10:23 Active Vaginal Exam [RC] PRN Care 10/16/20 10:23 Active Vaginal Exam [RC] PRN Care 10/16/20 10:33 Active Vital Signs [RC] PER UNIT ROUTINE Care 10/16/20 10:23 Active Vital Signs [RC] PER UNIT ROUTINE Care 10/16/20 10:33 Active CBC W/O DIFF,HEMOGRAM [HEME] Routine Lab 10/16/20 10:23 Ordered RPR (SYPHILIS SERO) W/ RFLX [REF] Routine Lab 10/16/20 10:23 Ordered TYPE AND SCREEN [BBK] Routine Lab 10/16/20 10:23 Ordered Butorphanol [Stadol] Med 10/16/20 10:23 Active 1 mg IVPUSH Q1H PRN Carboprost Tromethamine [Hemabate DS] Med 10/16/20 10:23 Active 250 mcg IM ASDIRECTED PRN Lactated Ringers [Ringers, Lactated] 1,000 ml Med 10/16/20 10:30 Active IV ASDIRECTED Lidocaine 1% [Xylocaine 1%] Med 10/16/20 10:23 Active 50 ml INJECT ONETIME PRN Methylergonovine [Methergine] Med 10/16/20 10:23 Active 0.2 mg IM ASDIRECTED PRN Nalbuphine [Nubain] Med 10/16/20 10:23 Active 10 mg IVPUSH Q1H PRN Oxytocin/0.9 % Sodium Chloride [Oxytocin 30 Unit/500 ML Med 10/16/20 10:30 Active -NS] 30 unit in 500 ml IV TITRATE Oxytocin/0.9 % Sodium Chloride [Oxytocin 30 Unit/500 ML Med 10/16/20 10:45 Active -NS] 30 unit in 500 ml IV TITRATE Sodium Chloride 0.9% [Normal Saline] Med 10/16/20 10:23 Active 10 ml IV ASDIRECTED PRN Sodium Chloride 0.9% [Saline Flush] Med 10/16/20 10:23 Active 10 ml FLUSH ASDIRECTED PRN Sodium Chloride 0.9% [Saline Flush] Med 10/16/20 10:23 Active 2.5 ml FLUSH ASDIRECTED PRN Terbutaline [Brethine] Med 10/16/20 10:33 Active 0.25 mg SUBCUT ASDIRECTED PRN Tranexamic Acid [Cyklokapron] 1,000 mg Med 10/16/20 10:23 Active Sodium Chloride 0.9% [Normal Saline] 100 ml IV ONETIME Water For Irrigation,Sterile [Sterile Water for Med 10/16/20 10:23 Active Irrigation] 1,000 ml IRR ASDIRECTED PRN miSOPROStoL [Cytotec] Med 10/16/20 10:23 Active 200 mcg PO ONETIME PRN miSOPROStoL [Cytotec] Med 10/16/20 10:33 Active 25 mcg VAG ONETIME PRN miSOPROStoL [Cytotec] Med 10/16/20 10:33 Active 25 mcg VAG Q4H PRN Scalp Electrode [WOMSER] Per Unit Routine Oth 10/16/20 10:23 Ordered Medication Administration Instruction [OM.PC] Q3H Oth 10/16/20 10:45 Ordered Peripheral IV Insertion Adult [OM.PC] Routine Oth 10/16/20 10:23 Ordered Resuscitation Status Routine Resus Stat 10/16/20 10:23 Ordered Medication Orders Butorphanol Tartrate (Butorphanol 1 Mg/Ml Sdv) 1 mg IVPUSH Q1H PRN PRN Reason: Pain Carboprost Tromethamine (Carboprost Tromethamine 250 Mcg/1 Ml Amp) 250 mcg IM ASDIRECTED PRN PRN Reason: Post Hemorrhage Oxytocin/Sodium Chloride (Oxytocin 30 Unit/500 Ml-Ns) 30 unit in 500 mls @ 500 mls/hr IV TITRATE YANET Tranexamic Acid 1,000 mg/ (Sodium Chloride) 110 mls @ 660 mls/hr IV ONETIME PRN PRN Reason: Bleeding Lactated Ringer's (Ringers, Lactated) 1,000 mls @ 150 mls/hr IV ASDIRECTED YANET Oxytocin/Sodium Chloride (Oxytocin 30 Unit/500 Ml-Ns) 30 unit in 500 mls @ 2 mls/hr IV TITRATE YANET; Protocol Lidocaine HCl (Lidocaine 1% 50 Ml Mdv) 50 ml INJECT ONETIME PRN PRN Reason: Laceration repair Methylergonovine Maleate (Methylergonovine 0.2 Mg/1 Ml Amp) 0.2 mg IM ASDIRECTED PRN PRN Reason: Post Hemorrhage Misoprostol (Misoprostol 200 Mcg Tab) 200 mcg PO ONETIME PRN PRN Reason: Post Hemorrhage Misoprostol (Misoprostol 25 Mcg (1/4 Of 100 Mcg) Tab) 25 mcg VAG ONETIME PRN PRN Reason: Cervical Ripening Misoprostol (Misoprostol 25 Mcg (1/4 Of 100 Mcg) Tab) 25 mcg VAG Q4H PRN PRN Reason: Cervical Ripening Nalbuphine HCl (Nalbuphine 10 Mg/1 Ml Vial) 10 mg IVPUSH Q1H PRN PRN Reason: Pain (severe 7-10) Sodium Chloride (Sodium Chloride 0.9% 10 Ml Syringe) 10 ml FLUSH ASDIRECTED PRN PRN Reason: Keep Vein Open Sodium Chloride (Sodium Chloride 0.9% 2.5 Ml Syringe) 2.5 ml FLUSH ASDIRECTED PRN PRN Reason: Keep Vein Open Sodium Chloride (Sodium Chloride 0.9% 10 Ml Sdv) 10 ml IV ASDIRECTED PRN PRN Reason: IV Use Sterile Water (Water For Irrigation,Sterile 1,000 Ml Container) 1,000 ml IRR ASDIRECTED PRN PRN Reason: delivery Terbutaline Sulfate (Terbutaline 1 Mg/Ml Sdv) 0.25 mg SUBCUT ASDIRECTED PRN PRN Reason: Tacysystole Assessment/Plan Comment:: Patient have an intrauterine of twin gestation she is 37+6. The patient admitted for elective induction sensation of the first twin is vertex confirmed by digital and ultrasound examination. Plan and discussion for the delivery is discussed with the patient in detail
[2020-10-16] MEDS: Lactated Ringers 1,000 ML IV SCH ×3 (15:42→21:00)
[2020-10-16] MEDS ORDERED: Bupivicaine/fentaNYL/NS 250 ML ONE (17:03)
[2020-10-16] MEDS ORDERED: Ropivacaine 0.2% PF 2 MG/ML 20 ML SDV ONE (17:03)
--- NOTE | 2020-10-16 17:46 | PCM.PREANE ---
Preanesthetic Assessment - Procedure Proposed Procedure: labor epidural-twins - Anesthesia/Transfusion/Family Hx Anesthesia History: Prior Anesthesia Without Reaction Family History of Anesthesia Reaction: No Transfusion History: No Prior Transfusion(s) Intubation History: Unknown - Review of Systems General: No Symptoms Pulmonary: No Symptoms Cardiovascular: No Symptoms Gastrointestinal: No Symptoms Neurological: No Symptoms Other: Reports: None - Physical Assessment Height: 5 ft 6 in Weight: 131.995 kg ASA Class: 2 Mental Status: Alert & Oriented x3 Airway Class: Mallampati = 1 Dentition: Reports: Normal Dentition Thyro-Mental Finger Breadths: 3 Mouth Opening Finger Breadths: 3 ROM/Head Extension: Full Lungs: Clear to Auscultation, Normal Respiratory Effort Cardiovascular: Regular Rate, Regular Rhythm - Lab Values: Laboratory Last Values WBC 10.54 K/uL (4.0-11.0) 10/16/20 11:10 RBC 4.72 M/uL (4.30-5.90) 10/16/20 11:10 Hgb 13.2 g/dL (12.0-16.0) 10/16/20 11:10 Hct 40.4 % (36.0-46.0) 10/16/20 11:10 MCV 85.6 fL (80.0-98.0) 10/16/20 11:10 MCH 28.0 pg (27.0-32.0) 10/16/20 11:10 MCHC 32.7 g/dL (31.0-37.0) 10/16/20 11:10 RDW Std Deviation 44.4 fl (28.0-62.0) 10/16/20 11:10 RDW Coeff of Miki 15 % (11.0-15.0) 10/16/20 11:10 Plt Count 233 K/uL (150-400) 10/16/20 11:10 MPV 12.90 fL (7.40-12.00) H 10/16/20 11:10 Nucleated RBC % 0.0 /100WBC 10/16/20 11:10 Nucleated RBCs # 0 K/uL 10/16/20 11:10 Blood Type A POSITIVE 10/16/20 11:10 Antibody Screen NEGATIVE 10/16/20 11:10 - Allergies Allergies/Adverse Reactions: Allergies Allergy/AdvReac Type Severity Reaction Status Date / Time No Known Allergies Allergy Verified 09/10/20 09:21 - Blood Blood Available: Yes Product(s) Available: PRBC - Anesthesia Plan Pre-Op Medication Ordered: None - Acknowledgements Anesthesia Type Planned: Epidural Pt an Appropriate Candidate for the Planned Anesthesia: Yes Alternatives and Risks of Anesthesia Discussed w Pt/Guardian: Yes Pt/Guardian Understands and Agrees with Anesthesia Plan: Yes PreAnesthesia Questionnaire HEENT History: Reports: Impaired Vision, Other (See Below) Other HEENT History: wears glasses Cardiovascular History: Reports: None Respiratory History: Reports: None Gastrointestinal History: Reports: Colon Polyp, Gastritis, Hemorrhoids, PUD, Other (See Below) Other Gastrointestinal History: hx of high grade dysplasic colon polyp Genitourinary History: Reports: None 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: Reports: 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, Musculoskeletal History: Reports: Fracture Other Musculoskeletal History: fx arm as a child Neurological History: Reports: Migraines Psychiatric History: Reports: None Endocrine/Metabolic History: Reports: Obesity/BMI 30+ Hematologic History: Reports: None Immunologic History: Reports: None Oncologic (Cancer) History: Reports: None Dermatologic History: Reports: None - Infectious Disease History Infectious Disease History: Reports: Chicken Pox, Novel Coronavirus - Past Surgical History Head Surgeries/Procedures: Reports: None HEENT Surgical History: Reports: Oral Surgery, Other (See Below) Other HEENT Surgeries/Procedures: teeth extraction Cardiovascular Surgical History: Reports: None Respiratory Surgical History: Reports: None GI Surgical History: Reports: Cholecystectomy, Colonoscopy, EGD Female Surgical History: Reports: None Endocrine Surgical History: Reports: None Neurological Surgical History: Reports: None Musculoskeletal Surgical History: Reports: None Dermatological Surgical History: Reports: Other (See Below) - SUBSTANCE USE Tobacco Use Status *Q: Never Tobacco User Second Hand Smoke Exposure: No Recreational Drug Use History: No - HOME MEDS Home Medications: Home Meds Pnv No.95/Ferrous Fum/Folic AC [ Tablet] 1 tab PO DAILY 09/10/20 [History] - CURRENT (IN HOUSE) MEDS Current Meds: Current Medications Butorphanol Tartrate (Butorphanol 1 Mg/Ml Sdv) 1 mg IVPUSH Q1H PRN PRN Reason: Pain Carboprost Tromethamine (Carboprost Tromethamine 250 Mcg/1 Ml Amp) 250 mcg IM ASDIRECTED PRN PRN Reason: Post Hemorrhage Oxytocin/Sodium Chloride (Oxytocin 30 Unit/500 Ml-Ns) 30 unit in 500 mls @ 500 mls/hr IV TITRATE YANET Tranexamic Acid 1,000 mg/ (Sodium Chloride) 110 mls @ 660 mls/hr IV ONETIME PRN PRN Reason: Bleeding Lactated Ringer's (Ringers, Lactated) 1,000 mls @ 150 mls/hr IV ASDIRECTED YANET Last Admin: 10/16/20 17:30 Dose: 999 mls/hr Documented by: Oxytocin/Sodium Chloride (Oxytocin 30 Unit/500 Ml-Ns) 30 unit in 500 mls @ 2 mls/hr IV TITRATE YANET; Protocol Last Titration: 10/16/20 17:36 Dose: 6 munits/min, 6 mls/hr Documented by: Lidocaine HCl (Lidocaine 1% 50 Ml Mdv) 50 ml INJECT ONETIME PRN PRN Reason: Laceration repair Methylergonovine Maleate (Methylergonovine 0.2 Mg/1 Ml Amp) 0.2 mg IM ASDIRECTED PRN PRN Reason: Post Hemorrhage Misoprostol (Misoprostol 200 Mcg Tab) 200 mcg PO ONETIME PRN PRN Reason: Post Hemorrhage Misoprostol (Misoprostol 25 Mcg (1/4 Of 100 Mcg) Tab) 25 mcg VAG ONETIME PRN PRN Reason: Cervical Ripening Last Admin: 10/16/20 11:22 Dose: 25 mcg Documented by: Misoprostol (Misoprostol 25 Mcg (1/4 Of 100 Mcg) Tab) 25 mcg VAG Q4H PRN PRN Reason: Cervical Ripening Nalbuphine HCl (Nalbuphine 10 Mg/1 Ml Vial) 10 mg IVPUSH Q1H PRN PRN Reason: Pain (severe 7-10) Sodium Chloride (Sodium Chloride 0.9% 10 Ml Syringe) 10 ml FLUSH ASDIRECTED PRN PRN Reason: Keep Vein Open Sodium Chloride (Sodium Chloride 0.9% 2.5 Ml Syringe) 2.5 ml FLUSH ASDIRECTED PRN PRN Reason: Keep Vein Open Sodium Chloride (Sodium Chloride 0.9% 10 Ml Sdv) 10 ml IV ASDIRECTED PRN PRN Reason: IV Use Sterile Water (Water For Irrigation,Sterile 1,000 Ml Container) 1,000 ml IRR ASDIRECTED PRN PRN Reason: delivery Terbutaline Sulfate (Terbutaline 1 Mg/Ml Sdv) 0.25 mg SUBCUT ASDIRECTED PRN PRN Reason: Tacysystole Discontinued Medications Fentanyl/Bupivacaine HCl (Fentanyl/Bupivacaine/Ns 2 Mcg-0.125% 250 Ml) Confirm Administered Dose 250 mls @ as directed .ROUTE .STK-MED ONE Stop: 10/16/20 17:04 Misoprostol (Misoprostol 25 Mcg (1/4 Of 100 Mcg) Tab) 25 mcg PO ONETIME ONE Stop: 10/16/20 10:35 Last Admin: 10/16/20 11:19 Dose: 25 mcg Documented by: Ropivacaine (Ropivacaine 0.2% Pf 2 Mg/Ml 20 Ml Sdv) Confirm Administered Dose 20 ml .ROUTE .STK-MED ONE Stop: 10/16/20 17:04
[2020-10-16] MEDS ORDERED: Lidocaine 2% with EPINEPHrine 1:200,000 20 ML SDV ONE (17:49)
[2020-10-16] MEDS ORDERED: Propofol 200 MG/20 ML SDV ONE (21:34)
[2020-10-16] MEDS ORDERED: Ibuprofen 400 MG Tab PO PRN (21:55)
[2020-10-16] MEDS ORDERED: Benzocaine/Menthol 20%-0.5% Spray 78 GM Cannister TOP PRN (21:55)
[2020-10-16] MEDS ORDERED: Bisacodyl 10 MG Supp RECTAL PRN (21:55)
[2020-10-16] MEDS ORDERED: Lanolin 100% Cream 7 GM Tube TOP PRN (21:55)
[2020-10-16] MEDS ORDERED: oxyCODONE 5 MG Tab PO PRN (21:55)
[2020-10-16] MEDS ORDERED: Docusate Sodium 100 MG Cap PO PRN (21:55)
[2020-10-16] MEDS ORDERED: Acetaminophen 500 MG Tab PO PRN ×2 (21:55)
[2020-10-16] MEDS ORDERED: Witch Hazel Medicated Pads 40/Jar TOP PRN (21:55)
[2020-10-17] MEDS: Ibuprofen 800 MG Tab PO PRN ×3 (01:13→16:33)
--- NOTE | 2020-10-17 06:58 | PCM48HPAN ---
Post Anesthesia Note - EVALUATION WITHIN 48HRS OF ANESTHETIC Vital Signs in Normal Range: Yes Patient Participated in Evaluation: Yes Respiratory Function Stable: Yes Airway Patent: Yes Cardiovascular Function Stable: Yes Hydration Status Stable: Yes Pain Control Satisfactory: Yes Nausea and Vomiting Control Satisfactory: Yes Mental Status Recovered: Yes Vital Signs: Last Vital Signs Temp 35.7 C L 10/17/20 06:04 Pulse 86 10/17/20 06:04 Resp 18 10/17/20 06:04 BP 145/92 H 10/17/20 06:04 Pulse Ox 97 10/17/20 06:04
--- NOTE | 2020-10-17 08:48 | OR ---
SURGEON: Bry Ng MD DATE OF PROCEDURE: 10/16/2020 Ms. Sheppard is a 30. She is with twins. She is 37 + 6. She is admitted for elective induction. The patient's GBS status was positive. She was started on appropriate antibiotic. She started her induction with Cytotec. She required one dose of the Cytotec. At the time of admission, she was 2 to 3 and vertex for the first baby and the second one was transverse lie. Then she has required Pitocin. She had artificial rupture of the membrane with clear fluid. The patient had epidural anesthesia for labor analgesia. She progress adequately and then when she became complete-complete, the patient was moved to the OR. With the OR team and Anesthesia in attendance and the dipper and drier in attendance, twin A delivered without any problem and cried immediately. score reported to be 8 and 9. Then with the guidance of the ultrasound through the abdomen, I was able to do a gentle partial external version and guide the fetus toward the pelvis, and once the fetus' head was on top of the pelvis, I did an artificial rupture of the membrane, and it was clear fluid. The patient pushed, and the fetus head was jammed into the vagina; and after 2 more pushing, she accomplish vaginal delivery of her second twin. It cried immediately. score reported 8 and 9. The placenta delivered spontaneous, complete, and intact. There was no perineal or labial laceration. Both placentas delivered without any problem. Estimated blood loss was 450 to 500 mL. heart rate of both fetuses was category 1 through the entire process of labor. There was no complication in for of these twins and through the labor process. BLAIRE / ISIDRO /[id number]
--- NOTE | 2020-10-17 17:45 | PCM.PNPP ---
- General Info Date of Service: 10/17/20 Admission Dx/Problem (Free Text): Patient Status Order with Admit Dx/Problem 10/16/20 10:23 Patient Status [ADT] Routine Admission Diagnosis/Problem Admission Diagnosis/Problem Katrin is a 30 yo PPD1 S/P uncomplicated to term, viable twin NBMs. A pos, RI, GBS neg. Patient has no complaints or concerns at this time. Patient is bottle and breast feeding well, resting comfortably in bed with NBMA in arms, NBMB in FOB arms. Patient reports she is eating, voiding, ambulating independently and without difficulty. Patient denies any problems or concerns at this time except moderate intermittent uterine cramping relieved with Ibuprofen. Patient reports small to moderate vaginal bleeding with no clots. Functional Status: Reports: Pain Controlled, Tolerating Diet, Ambulating, Urinating - Review of Systems General: Reports: No Symptoms HEENT: Reports: No Symptoms Pulmonary: Reports: No Symptoms Cardiovascular: Reports: No Symptoms Gastrointestinal: Reports: No Symptoms Genitourinary: Reports: No Symptoms Musculoskeletal: Reports: No Symptoms Skin: Reports: No Symptoms Neurological: Reports: No Symptoms Psychiatric: Reports: No Symptoms - General Info Date of Service: 10/17/20 - Patient Data Vital Signs - Most Recent: Last Vital Signs Temp 97.2 F 10/17/20 08:30 Pulse 79 10/17/20 08:30 Resp 20 10/17/20 08:30 BP 140/82 10/17/20 08:30 Pulse Ox 96 10/17/20 08:30 Weight - Most Recent: 291 lb Lab Results - Last 24 Hours: Laboratory Results - last 24 hr 10/16/20 10/17/20 Range/Units 11:10 05:25 Hgb 12.1 (12.0-16.0) g/dL Hct 36.8 (36.0-46.0) % RPR Non-Reac (Non-Reac) Med Orders - Current: Current Medications Acetaminophen (Acetaminophen 500 Mg Tab) 500 mg PO Q4H PRN PRN Reason: Pain Acetaminophen (Acetaminophen 500 Mg Tab) 1,000 mg PO Q4H PRN PRN Reason: Pain Benzocaine/Menthol (Benzocaine/Menthol 20%-0.5% [place] 78 Gm Cannister) 78 gm TOP ASDIRECTED PRN PRN Reason: Perineal Comfort Measure Bisacodyl (Bisacodyl 10 Mg Supp) 10 mg RECTAL ONETIME PRN PRN Reason: Constipation Butorphanol Tartrate (Butorphanol 1 Mg/Ml Sdv) 1 mg IVPUSH Q1H PRN PRN Reason: Pain Carboprost Tromethamine (Carboprost Tromethamine 250 Mcg/1 Ml Amp) 250 mcg IM ASDIRECTED PRN PRN Reason: Post Hemorrhage Docusate Sodium (Docusate Sodium 100 Mg Cap) 100 mg PO BID PRN PRN Reason: Constipation Emollient Ointment (Lanolin 100% Cream 7 Gm Tube) 0 gm TOP ASDIRECTED PRN PRN Reason: Sore Nipples Last Admin: 10/17/20 11:14 Dose: 1 gm Documented by: Oxytocin/Sodium Chloride (Oxytocin 30 Unit/500 Ml-Ns) 30 unit in 500 mls @ 500 mls/hr IV TITRATE YANET Tranexamic Acid 1,000 mg/ (Sodium Chloride) 110 mls @ 660 mls/hr IV ONETIME PRN PRN Reason: Bleeding Lactated Ringer's (Ringers, Lactated) 1,000 mls @ 150 mls/hr IV ASDIRECTED YANET Last Admin: 10/16/20 21:00 Dose: 999 mls/hr Documented by: Oxytocin/Sodium Chloride (Oxytocin 30 Unit/500 Ml-Ns) 30 unit in 500 mls @ 2 mls/hr IV TITRATE YANET; Protocol Last Titration: 10/16/20 21:01 Dose: 12 munits/min, 12 mls/hr Documented by: Ibuprofen (Ibuprofen 400 Mg Tab) 400 mg PO Q4H PRN PRN Reason: Pain Ibuprofen (Ibuprofen 800 Mg Tab) 800 mg PO Q6H PRN PRN Reason: Pain Last Admin: 10/17/20 16:33 Dose: 800 mg Documented by: Lidocaine HCl (Lidocaine 1% 50 Ml Mdv) 50 ml INJECT ONETIME PRN PRN Reason: Laceration repair Methylergonovine Maleate (Methylergonovine 0.2 Mg/1 Ml Amp) 0.2 mg IM ASDIRECTED PRN PRN Reason: Post Hemorrhage Misoprostol (Misoprostol 200 Mcg Tab) 200 mcg PO ONETIME PRN PRN Reason: Post Hemorrhage Misoprostol (Misoprostol 25 Mcg (1/4 Of 100 Mcg) Tab) 25 mcg VAG ONETIME PRN PRN Reason: Cervical Ripening Last Admin: 10/16/20 11:22 Dose: 25 mcg Documented by: Misoprostol (Misoprostol 25 Mcg (1/4 Of 100 Mcg) Tab) 25 mcg VAG Q4H PRN PRN Reason: Cervical Ripening Nalbuphine HCl (Nalbuphine 10 Mg/1 Ml Vial) 10 mg IVPUSH Q1H PRN PRN Reason: Pain (severe 7-10) Oxycodone HCl (Oxycodone 5 Mg Tab) 5 mg PO Q2H PRN PRN Reason: Pain Sodium Chloride (Sodium Chloride 0.9% 10 Ml Syringe) 10 ml FLUSH ASDIRECTED PRN PRN Reason: Keep Vein Open Sodium Chloride (Sodium Chloride 0.9% 2.5 Ml Syringe) 2.5 ml FLUSH ASDIRECTED PRN PRN Reason: Keep Vein Open Sodium Chloride (Sodium Chloride 0.9% 10 Ml Sdv) 10 ml IV ASDIRECTED PRN PRN Reason: IV Use Sterile Water (Water For Irrigation,Sterile 1,000 Ml Container) 1,000 ml IRR ASDIRECTED PRN PRN Reason: delivery Terbutaline Sulfate (Terbutaline 1 Mg/Ml Sdv) 0.25 mg SUBCUT ASDIRECTED PRN PRN Reason: Tacysystole Witch Chani (Witch Chani Medicated Pads 40/Jar) 1 pad TOP ASDIRECTED PRN PRN Reason: comfort care Discontinued Medications Fentanyl/Bupivacaine HCl (Fentanyl/Bupivacaine/Ns 2 Mcg-0.125% 250 Ml) Confirm Administered Dose 250 mls @ as directed .ROUTE .STK-MED ONE Stop: 10/16/20 17:04 Lidocaine/Epinephrine (Lidocaine 2% With Epinephrine 1:200,000 20 Ml Sdv) Confirm Administered Dose 20 ml .ROUTE .STK-MED ONE Stop: 10/16/20 17:50 Misoprostol (Misoprostol 25 Mcg (1/4 Of 100 Mcg) Tab) 25 mcg PO ONETIME ONE Stop: 10/16/20 10:35 Last Admin: 10/16/20 11:19 Dose: 25 mcg Documented by: Propofol (Propofol 200 Mg/20 Ml Sdv) Confirm Administered Dose 200 mg .ROUTE .STK-MED ONE Stop: 10/16/20 21:35 Ropivacaine (Ropivacaine 0.2% Pf 2 Mg/Ml 20 Ml Sdv) Confirm Administered Dose 20 ml .ROUTE .STK-MED ONE Stop: 10/16/20 17:04 - Infant Interaction Infant Disposition, : in Room with Family Interaction: Holding Infant Infant Feeding: Attempted ; Nursed Fair/Poor, Bottle Fed Infant, Continues to Breastfeed Support Person: - Recovery Exam Fundal Tone: Firm Fundal Level: 1 Fingerbreadths Above Umbilicus Fundal Placement: Midline Lochia Amount: Moderate Lochia Color: Rubra/Red Perineum Description: Intact, Minimal Bruising/Swelling Episiotomy/Laceration: None Bladder Status: Voiding Urinary Elimination: Voided - Exam General: Alert, Oriented, Cooperative, No Acute Distress HEENT: Pupils Equal, Mucous Membr. Moist/[place] Neck: Supple Lungs: Clear to Auscultation, Normal Respiratory Effort Cardiovascular: Regular Rate, Regular Rhythm GI/Abdominal Exam: Normal Bowel Sounds, Soft, Non-Tender, No Organomegaly, No Distention Extremities: Normal Inspection, Normal Range of Motion, Non-Tender, No Pedal Edema, Normal Capillary Refill Skin: Warm, Dry, Intact Neurological: No New Focal Deficit Psy/Mental Status: Alert, Normal Affect, Normal Mood - Problem List & Annotations (1) (normal spontaneous vaginal delivery) SNOMED Code(s): 10642180, 600322469 Code(s): O80 - ENCOUNTER FOR FULL-TERM UNCOMPLICATED DELIVERY Status: Acute Priority: High Current Visit: Yes (2) Twin SNOMED Code(s): 31183129 Code(s): Z37.9 - OUTCOME OF DELIVERY, UNSPECIFIED Status: Acute Priority: High Current Visit: Yes (3) Lactating mother SNOMED Code(s): 602934269, 157911287 Code(s): Z39.1 - ENCOUNTER FOR CARE AND EXAMINATION OF LACTATING MOTHER Status: Acute Priority: High Current Visit: Yes - Problem List Review Problem List Initiated/Reviewed/Updated: Yes - Plan Plan:: Continue inpatient care. Mild BP elevation noted , 140s/80s, asymptomatic. Hemodynamically stable, afebrile. hemoglobin 12.1. Continue PO analgesia as ordered. Continue breast and bottle feeding, eating, voiding, ambulating independently. Plan to D/C in am pending labs. Dr. Ng notified and agreeable with POC.
[2020-10-18] MEDS: Ibuprofen 800 MG Tab PO PRN ×2 (04:34→13:20)
[2020-10-18 05:31] LABS: BLOOD UREA NITROGEN,BUN 13 mg/dL (7.0-18.0); CARBON DIOXIDE,CO2 25.3 mmol/L (21.0-32.0); CHLORIDE,CL 106 mmol/L (98-107); GLUCOSE RANDOM 93 mg/dL (74-106); POTASSIUM,K 4.1 mmol/L (3.5-5.1); SODIUM,NA 140 mmol/L (136-145)
--- NOTE | 2020-10-18 07:26 | PCM.DCSUM1 ---
Discharge Summary - Hospital Course Free Text/Narrative:: Katrin is a 30 yo PPD2 S/P uncomplicated to term, viable twin NBMs. A pos, RI, GBS neg. Patient has no complaints or concerns at this time. Patient is bottle and breast feeding well, resting comfortably in bed with NBMA and NBMB in nursery. Patient reports she is eating, voiding, ambulating independently and without difficulty. Patient denies any problems or concerns at this time except moderate intermittent uterine cramping relieved with I buprofen. Patient reports small to moderate vaginal bleeding with no clots. Mild elevated BPs noted (140s/80s-90s), asymptomatic, not currently medicated and likely transient. CBC+CMP collected today, WNL and unremarkable. Dr. Ng notified and aware. Patient verbalizes desire to be discharged home today. Diagnosis: Stroke: No - Discharge Data Discharge Date: 10/18/20 Discharge Disposition: Home, Self-Care 01 Condition: Good - Referral to Home Health Primary Care Physician: PCP None - Discharge Diagnosis/Problem(s) (1) (normal spontaneous vaginal delivery) SNOMED Code(s): 26995984, 011521245 ICD Code: O80 - ENCOUNTER FOR FULL-TERM UNCOMPLICATED DELIVERY Status: Acute Priority: High Current Visit: Yes (2) Twin SNOMED Code(s): 11468158 ICD Code: Z37.9 - OUTCOME OF DELIVERY, UNSPECIFIED Status: Acute Priority: High Current Visit: Yes (3) Lactating mother SNOMED Code(s): 623920108, 840834909 ICD Code: Z39.1 - ENCOUNTER FOR CARE AND EXAMINATION OF LACTATING MOTHER Status: Acute Priority: High Current Visit: Yes - Patient Instructions Diet: Usual Diet as Tolerated, Regular Diet as Tolerated, Drink 8-10+ Glasses/Day Activity: As Tolerated, No Strenuous Activities, Rest and Relax Today Driving: May Drive Today Showering/Bathing: May Shower Notify Provider of: Fever, Increased Pain, Swelling and Redness, Drainage, Nausea and/or Vomiting - Discharge Plan *PRESCRIPTION DRUG MONITORING PROGRAM REVIEWED*: No *COPY OF PRESCRIPTION DRUG MONITORING REPORT IN PATIENT AYANNA: No Prescriptions/Med Rec: Ibuprofen [Motrin] 800 mg PO Q8H PRN #90 tablet PRN Reason: Pain Home Medications: Home Meds Pnv No.95/Ferrous Fum/Folic AC [ Tablet] 1 tab PO DAILY 09/10/20 [Histo ry] Ibuprofen [Motrin] 800 mg PO Q8H PRN #90 tablet 10/18/20 [Rx] Oxygen Therapy Mode: Room Air Referrals: Klever Nicole,Yanique [Ordering Only Provider] - 11/21/20 10:45 am Bry Ng MD [Physician] - - Discharge Summary/Plan Comment DC Time >30 min.: Yes Discharge Summary/Plan Comment: Warning S/Ss, when to call for help discussed, no questions. RTO in 1 week for BP check. RTO in 6 weeks for visit, or sooner if problems arise. - General Info Date of Service: 10/18/20 Admission Dx/Problem (Free Text: Patient Status Order with Admit Dx/Problem 10/16/20 10:23 Patient Status [ADT] Routine Admission Diagnosis/Problem Admission Diagnosis/Problem Katrin is a 30 yo PPD1 S/P uncomplicated to term, viable twin NBMs. A pos, RI, GBS neg. Patient has no complaints or concerns at this time. Patient is bottle and breast feeding well, resting comfortably in bed with NBMA in arms, NBMB in FOB arms. Patient reports she is eating, voiding, ambulating independently and without difficulty. Patient denies any problems or concerns at this time except moderate intermittent uterine cramping relieved with Ibuprofen. Patient reports small to moderate vaginal bleeding with no clots. Functional Status: Reports: Pain Controlled, Tolerating Diet, Ambulating, Urinating - Review of Systems General: Reports: No Symptoms HEENT: Reports: No Symptoms Pulmonary: Reports: No Symptoms Cardiovascular: Reports: No Symptoms Gastrointestinal: Reports: No Symptoms Genitourinary: Reports: No Symptoms Musculoskeletal: Reports: No Symptoms Skin: Reports: No Symptoms Neurological: Reports: No Symptoms Psychiatric: Reports: No Symptoms - Patient Data Vitals - Most Recent: Last Vital Signs Temp 97.4 F 10/17/20 20:19 Pulse 98 10/18/20 04:45 Resp 17 10/18/20 04:45 BP 129/80 10/18/20 04:50 Pulse Ox 99 10/18/20 04:45 Weight - Most Recent: 291 lb Lab Results - Last 24 hrs: Laboratory Results - last 24 hr 10/16/20 10/18/20 10/18/20 Range/Units 11:10 05:00 05:00 WBC 9.94 (4.0-11.0) K/uL RBC 4.20 L (4.30-5.90) M/uL Hgb 11.8 L (12.0-16.0) g/dL Hct 36.7 (36.0-46.0) % MCV 87.4 (80.0-98.0) fL MCH 28.1 (27.0-32.0) pg MCHC 32.2 (31.0-37.0) g/dL RDW Std Deviation 47.1 (28.0-62.0) fl RDW Coeff of Miki 15 (11.0-15.0) % Plt Count 212 (150-400) K/uL MPV 11.70 (7.40-12.00) fL Nucleated RBC % 0.0 /100WBC Nucleated RBCs # 0 K/uL Sodium 140 (136-145) mmol/L Potassium 4.1 (3.5-5.1) mmol/L Chloride 106 (98-107) mmol/L Carbon Dioxide 25.3 (21.0-32.0) mmol/L BUN 13 (7.0-18.0) mg/dL Creatinine 0.7 (0.6-1.0) mg/dL Est Cr Clr Drug Dosing 112.01 mL/min Estimated GFR (MDRD) > 60.0 ml/min Glucose 93 (74-106) mg/dL Calcium 8.3 L (8.5-10.1) mg/dL Total Bilirubin 0.3 (0.2-1.0) mg/dL AST 18 (15-37) IU/L ALT 18 (14-63) IU/L Alkaline Phosphatase 141 H (46-116) U/L Total Protein 5.9 L (6.4-8.2) g/dL Albumin 2.0 L (3.4-5.0) g/dL Globulin 3.9 (2.6-4.0) g/dL Albumin/Globulin Ratio 0.5 L (0.9-1.6) RPR Non-Reac (Non-Reac) Med Orders - Current: Current Medications Acetaminophen (Acetaminophen 500 Mg Tab) 500 mg PO Q4H PRN PRN Reason: Pain Acetaminophen (Acetaminophen 500 Mg Tab) 1,000 mg PO Q4H PRN PRN Reason: Pain Benzocaine/Menthol (Benzocaine/Menthol 20%-0.5% [place] 78 Gm Cannister) 78 gm TOP ASDIRECTED PRN PRN Reason: Perineal Comfort Measure Bisacodyl (Bisacodyl 10 Mg Supp) 10 mg RECTAL ONETIME PRN PRN Reason: Constipation Butorphanol Tartrate (Butorphanol 1 Mg/Ml Sdv) 1 mg IVPUSH Q1H PRN PRN Reason: Pain Carboprost Tromethamine (Carboprost Tromethamine 250 Mcg/1 Ml Amp) 250 mcg IM ASDIRECTED PRN PRN Reason: Post Hemorrhage Docusate Sodium (Docusate Sodium 100 Mg Cap) 100 mg PO BID PRN PRN Reason: Constipation Emollient Ointment (Lanolin 100% Cream 7 Gm Tube) 0 gm TOP ASDIRECTED PRN PRN Reason: Sore Nipples Last Admin: 10/17/20 11:14 Dose: 1 gm Documented by: Oxytocin/Sodium Chloride (Oxytocin 30 Unit/500 Ml-Ns) 30 unit in 500 mls @ 500 mls/hr IV TITRATE YANET Tranexamic Acid 1,000 mg/ (Sodium Chloride) 110 mls @ 660 mls/hr IV ONETIME PRN PRN Reason: Bleeding Lactated Ringer's (Ringers, Lactated) 1,000 mls @ 150 mls/hr IV ASDIRECTED YANET Last Admin: 10/16/20 21:00 Dose: 999 mls/hr Documented by: Oxytocin/Sodium Chloride (Oxytocin 30 Unit/500 Ml-Ns) 30 unit in 500 mls @ 2 mls/hr IV TITRATE YANET; Protocol Last Titration: 10/16/20 21:01 Dose: 12 munits/min, 12 mls/hr Documented by: Ibuprofen (Ibuprofen 400 Mg Tab) 400 mg PO Q4H PRN PRN Reason: Pain Ibuprofen (Ibuprofen 800 Mg Tab) 800 mg PO Q6H PRN PRN Reason: Pain Last Admin: 10/18/20 04:34 Dose: 800 mg Documented by: Lidocaine HCl (Lidocaine 1% 50 Ml Mdv) 50 ml INJECT ONETIME PRN PRN Reason: Laceration repair Methylergonovine Maleate (Methylergonovine 0.2 Mg/1 Ml Amp) 0.2 mg IM ASDIRECTED PRN PRN Reason: Post Hemorrhage Misoprostol (Misoprostol 200 Mcg Tab) 200 mcg PO ONETIME PRN PRN Reason: Post Hemorrhage Misoprostol (Misoprostol 25 Mcg (1/4 Of 100 Mcg) Tab) 25 mcg VAG ONETIME PRN PRN Reason: Cervical Ripening Last Admin: 10/16/20 11:22 Dose: 25 mcg Documented by: Misoprostol (Misoprostol 25 Mcg (1/4 Of 100 Mcg) Tab) 25 mcg VAG Q4H PRN PRN Reason: Cervical Ripening Nalbuphine HCl (Nalbuphine 10 Mg/1 Ml Vial) 10 mg IVPUSH Q1H PRN PRN Reason: Pain (severe 7-10) Oxycodone HCl (Oxycodone 5 Mg Tab) 5 mg PO Q2H PRN PRN Reason: Pain Sodium Chloride (Sodium Chloride 0.9% 10 Ml Syringe) 10 ml FLUSH ASDIRECTED PRN PRN Reason: Keep Vein Open Sodium Chloride (Sodium Chloride 0.9% 2.5 Ml Syringe) 2.5 ml FLUSH ASDIRECTED PRN PRN Reason: Keep Vein Open Sodium Chloride (Sodium Chloride 0.9% 10 Ml Sdv) 10 ml IV ASDIRECTED PRN PRN Reason: IV Use Sterile Water (Water For Irrigation,Sterile 1,000 Ml Container) 1,000 ml IRR ASDIRECTED PRN PRN Reason: delivery Terbutaline Sulfate (Terbutaline 1 Mg/Ml Sdv) 0.25 mg SUBCUT ASDIRECTED PRN PRN Reason: Tacysystole Witch Chani (Witch Chani Medicated Pads 40/Jar) 1 pad TOP ASDIRECTED PRN PRN Reason: comfort care Discontinued Medications Fentanyl/Bupivacaine HCl (Fentanyl/Bupivacaine/Ns 2 Mcg-0.125% 250 Ml) Confirm Administered Dose 250 mls @ as directed .ROUTE .[employer]MED ONE Stop: 10/16/20 17:04 Last Admin: 10/17/20 21:07 Dose: Not Given Documented by: Lidocaine/Epinephrine (Lidocaine 2% With Epinephrine 1:200,000 20 Ml Sdv) Confirm Administered Dose 20 ml .ROUTE .STK-MED ONE Stop: 10/16/20 17:50 Last Admin: 10/17/20 21:07 Dose: Not Given Documented by: Misoprostol (Misoprostol 25 Mcg (1/4 Of 100 Mcg) Tab) 25 mcg PO ONETIME ONE Stop: 10/16/20 10:35 Last Admin: 10/16/20 11:19 Dose: 25 mcg Documented by: Propofol (Propofol 200 Mg/20 Ml Sdv) Confirm Administered Dose 200 mg .ROUTE .STK-MED ONE Stop: 10/16/20 21:35 Ropivacaine (Ropivacaine 0.2% Pf 2 Mg/Ml 20 Ml Sdv) Confirm Administered Dose 20 ml .ROUTE .STK-MED ONE Stop: 10/16/20 17:04 Last Admin: 10/17/20 21:07 Dose: Not Given Documented by: - Exam General: Reports: Alert, Oriented, Cooperative, No Acute Distress HEENT: Reports: Pupils Equal, Pupils Reactive, EOMI, Mucous Membr. Moist/[place] Neck: Reports: Supple Lungs: Reports: Clear to Auscultation, Normal Respiratory Effort Cardiovascular: Reports: Regular Rate, Regular Rhythm GI/Abdominal Exam: Normal Bowel Sounds, Soft, Non-Tender, No Organomegaly, No Distention, No Abnormal Bruit, No Mass, Pelvis Stable (Female) Exam: Normal External Exam, Enlarged Uterus, Vaginal Bleeding Rectal (Female) Exam: Deferred Back Exam: Reports: Normal Inspection, Full Range of Motion Extremities: Normal Inspection, Normal Range of Motion, Non-Tender, No Pedal Edema, Normal Capillary Refill Skin: Reports: Warm, Dry, Intact Neurological: Reports: No New Focal Deficit Psy/Mental Status: Reports: Alert, Normal Affect, Normal Mood
[2020-10-18 20:11] VITALS: BP 141/85; PULSE 89
== END 2020-10-18 17:35 | disposition home or self-care (01) | DRG 807 ==
LOC: MW.OB 09:51 → OBSVTOIN 21:56 → MW.OB 10-17 01:56
PROVIDERS: ADMIT Obstetrics & Gynecology; ATTEND Obstetrics & Gynecology
PROC: 10E0XZZ Delivery of Products of Conception, External Approach (ICD-10-PCS; principal; 2020-10-16)
PROC: 10907ZC Drainage of Amniotic Fluid, Therapeutic from Products of Conception, Via Natural or Artificial Opening (ICD-10-PCS; 2020-10-16)
PROC: 3E0P7VZ Introduction of Hormone into Female Reproductive, Via Natural or Artificial Opening (ICD-10-PCS; 2020-10-16)
PROC: 3E033VJ Introduction of Other Hormone into Peripheral Vein, Percutaneous Approach (ICD-10-PCS; 2020-10-16)
PROC: 3E0R3BZ Introduction of Anesthetic Agent into Spinal Canal, Percutaneous Approach (ICD-10-PCS; 2020-10-16)
PROC: 00HU33Z Insertion of Infusion Device into Spinal Canal, Percutaneous Approach (ICD-10-PCS; 2020-10-16)
DX: O30.003 Twin pregnancy, unspecified number of placenta and unspecified number of amniotic sacs, third trimester (principal); Z37.2 Twins, both liveborn; O99.214 Obesity complicating childbirth; O99.824 Streptococcus B carrier state complicating childbirth; Z3A.37 37 weeks gestation of pregnancy
CPT/HCPCS: 36415; 51702; 59025; 59409; 59412; 80053; 85014; 85018; 85027; 86592; 86850; 86900; 86901; A9270-GY; J2590; J2704; J2795; J3010; J7120

== ENCOUNTER 2020-10-22 09:19 | Emergency (ER) | payer OTHER ==
--- NOTE | 2020-10-22 09:39 | EDM.PDOC ---
ED HPI GENERAL MEDICAL PROBLEM - General Chief Complaint: Chest Pain Stated Complaint: POST PARDOM BLOOD PRESSURE Time Seen by Provider: 10/22/20 09:26 Source of Information: Reports: Patient History Limitations: Reports: No Limitations - History of Present Illness INITIAL COMMENTS - FREE TEXT/NARRATIVE: Patient is a 25-year-old female who just gave 6 months ago presents today for chest pressure. Patient dates that she was in some heavy on her chest. Patient also reports that she has had increasing blood pressure as well. Patient normally is not have high blood pressure not take any medication for. Patient also reports some swelling to her lower extremities as well. Patient denies any nausea vomiting fever chills. Patient denies any increased shortness of breath ambulation or other complaints. head pain Pain Score (Numeric/FACES): 1 - Related Data Allergies Allergy/AdvReac Type Severity Reaction Status Date / Time No Known Allergies Allergy Verified 10/22/20 09:41 Home Meds: Home Meds Pnv No.95/Ferrous Fum/Folic AC [ Tablet] 1 tab PO DAILY 09/10/20 [History] Ibuprofen [Motrin] 800 mg PO Q8H PRN #90 tablet 10/18/20 [Rx] hydroCHLOROthiazide [Hydrochlorothiazide] 12.5 mg PO DAILY 30 Days #30 tablet 10/22/20 [Rx] Past Medical History HEENT History: Reports: Impaired Vision, Other (See Below) Other HEENT History: wears glasses Cardiovascular History: Reports: None Respiratory History: Reports: None Gastrointestinal History: Reports: Colon Polyp, Gastritis, Hemorrhoids, PUD, Other (See Below) Other Gastrointestinal History: hx of high grade dysplasic colon polyp Genitourinary History: Reports: None [employer] History: Reports: 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, Musculoskeletal History: Reports: Fracture Other Musculoskeletal History: fx arm as a child Neurological History: Reports: Migraines Psychiatric History: Reports: None Endocrine/Metabolic History: Reports: Obesity/BMI 30+ Hematologic History: Reports: None Immunologic History: Reports: None Oncologic (Cancer) History: Reports: None Dermatologic History: Reports: None - Infectious Disease History Infectious Disease History: Reports: Chicken Pox, Novel Coronavirus - Past Surgical History Male Surgical History: Social & Family History - Family History HEENT: Reports: Glaucoma, Hearing Impairment Cardiac: Reports: Hypertension, Stent Respiratory: Reports: None GI: Reports: None : Reports: None OBGYN: Reports: Musculoskeletal: Reports: None Neurological: Reports: Alzheimers Disease Psychiatric: Reports: Anxiety, Panic Attack Endocrine/Metabolic: Reports: Obesity/MBI 30+ Hematologic: Reports: None Immunologic: Reports: None Dermatologic: Reports: None Oncologic: Reports: None - Caffeine Use Caffeine Use: Reports: Soda ED ROS GENERAL - Review of Systems Review Of Systems: See Below Constitutional: Reports: No Symptoms HEENT: Reports: No Symptoms Respiratory: Reports: No Symptoms Cardiovascular: Reports: Chest Pain Endocrine: Reports: No Symptoms GI/Abdominal: Reports: No Symptoms : Reports: No Symptoms Musculoskeletal: Reports: No Symptoms Skin: Reports: No Symptoms Neurological: Reports: No Symptoms Psychiatric: Reports: No Symptoms Hematologic/Lymphatic: Reports: No Symptoms Immunologic: Reports: No Symptoms ED EXAM, GENERAL - Physical Exam Exam: See Below Exam Limited By: No Limitations General Appearance: Alert, WD/WN Respiratory/Chest: No Respiratory Distress, Lungs Clear, Normal Breath Sounds Cardiovascular: Normal Peripheral Pulses, Regular Rate, Rhythm GI/Abdominal: Normal Bowel Sounds, Soft, Non-Tender Extremities: Normal Inspection, Normal Range of Motion Neurological: Alert, Oriented, CN II-XII Intact #1 Interpretation EKG Date: 10/22/20 Time: 09:30 Rhythm: NSR Rate (Beats/Min): 61 ST-T: Normal Course - Vital Signs Last Recorded V/S: Last Vital Signs Temp 98 F 10/22/20 09:20 Pulse 64 10/22/20 12:22 Resp 18 10/22/20 12:22 BP 159/104 H 10/22/20 12:22 Pulse Ox 98 10/22/20 12:22 - Orders/Labs/Meds Labs: Laboratory Tests 10/22/20 10/22/20 10/22/20 Range/Units 09:30 09:30 09:30 WBC 10.04 (4.0-11.0) K/uL RBC 4.68 (4.30-5.90) M/uL Hgb 13.3 (12.0-16.0) g/dL Hct 40.4 (36.0-46.0) % MCV 86.3 (80.0-98.0) fL MCH 28.4 (27.0-32.0) pg MCHC 32.9 (31.0-37.0) g/dL RDW Std Deviation 44.8 (28.0-62.0) fl RDW Coeff of Miki 14 (11.0-15.0) % Plt Count 258 (150-400) K/uL MPV 11.20 (7.40-12.00) fL Neut % (Auto) 72.8 (48.0-80.0) % Lymph % (Auto) 15.9 L (16.0-40.0) % Bryan % (Auto) 8.5 (0.0-15.0) % Eos % (Auto) 2.5 (0.0-7.0) % Baso % (Auto) 0.3 (0.0-1.5) % Neut # (Auto) 7.3 H (1.4-5.7) K/uL Lymph # (Auto) 1.6 (0.6-2.4) K/uL Bryan # (Auto) 0.9 H (0.0-0.8) K/uL Eos # (Auto) 0.3 (0.0-0.7) K/uL Baso # (Auto) 0.0 (0.0-0.1) K/uL Nucleated RBC % 0.0 /100WBC Nucleated RBCs # 0 K/uL D-Dimer, Quantitative 2.13 H (0.0-0.50) mg/L FEU Sodium 142 (136-145) mmol/L Potassium 4.1 (3.5-5.1) mmol/L Chloride 107 (98-107) mmol/L Carbon Dioxide 22.4 (21.0-32.0) mmol/L BUN 16 (7.0-18.0) mg/dL Creatinine 0.7 (0.6-1.0) mg/dL Est Cr Clr Drug Dosing 112.01 mL/min Estimated GFR (MDRD) > 60.0 ml/min Glucose 82 (74-106) mg/dL Calcium 9.0 (8.5-10.1) mg/dL Phosphorus 4.3 (2.6-4.7) mg/dL Magnesium 1.9 (1.8-2.4) mg/dL Total Bilirubin 0.5 (0.2-1.0) mg/dL AST 38 H (15-37) IU/L ALT 55 (14-63) IU/L Alkaline Phosphatase 148 H (46-116) U/L Creatine Kinase 76 (26-308) U/L Troponin I < 0.050 (0.000-0.056) ng/mL Total Protein 7.2 (6.4-8.2) g/dL Albumin 2.9 L (3.4-5.0) g/dL Globulin 4.3 H (2.6-4.0) g/dL Albumin/Globulin Ratio 0.7 L (0.9-1.6) Lipase 102 (73-393) U/L Urine Color Urine Appearance Urine pH (5.0-8.0) Ur Specific Gardiner (1.001-1.035) Urine Protein (NEGATIVE) mg/dL Urine Glucose (UA) (NEGATIVE) mg/dL Urine Ketones (NEGATIVE) mg/dL Urine Occult Blood (NEGATIVE) Urine Nitrite (NEGATIVE) Urine Bilirubin (NEGATIVE) Urine Urobilinogen (<2.0) EU/dL Ur Leukocyte Esterase (NEGATIVE) Urine RBC (0-2/HPF) Urine WBC (0-5/HPF) Ur Epithelial Cells (NONE-FEW) Urine Bacteria (NEGATIVE) 10/22/20 Range/Units 11:35 WBC (4.0-11.0) K/uL RBC (4.30-5.90) M/uL Hgb (12.0-16.0) g/dL Hct (36.0-46.0) % MCV (80.0-98.0) fL MCH (27.0-32.0) pg MCHC (31.0-37.0) g/dL RDW Std Deviation (28.0-62.0) fl RDW Coeff of Miki (11.0-15.0) % Plt Count (150-400) K/uL MPV (7.40-12.00) fL Neut % (Auto) (48.0-80.0) % Lymph % (Auto) (16.0-40.0) % Bryan % (Auto) (0.0-15.0) % Eos % (Auto) (0.0-7.0) % Baso % (Auto) (0.0-1.5) % Neut # (Auto) (1.4-5.7) K/uL Lymph # (Auto) (0.6-2.4) K/uL Bryan # (Auto) (0.0-0.8) K/uL Eos # (Auto) (0.0-0.7) K/uL Baso # (Auto) (0.0-0.1) K/uL Nucleated RBC % /100WBC Nucleated RBCs # K/uL D-Dimer, Quantitative (0.0-0.50) mg/L FEU Sodium (136-145) mmol/L Potassium (3.5-5.1) mmol/L Chloride (98-107) mmol/L Carbon Dioxide (21.0-32.0) mmol/L BUN (7.0-18.0) mg/dL Creatinine (0.6-1.0) mg/dL Est Cr Clr Drug Dosing mL/min Estimated GFR (MDRD) ml/min Glucose (74-106) mg/dL Calcium (8.5-10.1) mg/dL Phosphorus (2.6-4.7) mg/dL Magnesium (1.8-2.4) mg/dL Total Bilirubin (0.2-1.0) mg/dL AST (15-37) IU/L ALT (14-63) IU/L Alkaline Phosphatase (46-116) U/L Creatine Kinase (26-308) U/L Troponin I (0.000-0.056) ng/mL Total Protein (6.4-8.2) g/dL Albumin (3.4-5.0) g/dL Globulin (2.6-4.0) g/dL Albumin/Globulin Ratio (0.9-1.6) Lipase (73-393) U/L Urine Color YELLOW Urine Appearance SLT CLOUDY Urine pH 6.5 (5.0-8.0) Ur Specific Gardiner 1.010 (1.001-1.035) Urine Protein NEGATIVE (NEGATIVE) mg/dL Urine Glucose (UA) NEGATIVE (NEGATIVE) mg/dL Urine Ketones NEGATIVE (NEGATIVE) mg/dL Urine Occult Blood LARGE H (NEGATIVE) Urine Nitrite NEGATIVE (NEGATIVE) Urine Bilirubin NEGATIVE (NEGATIVE) Urine Urobilinogen 0.2 (<2.0) EU/dL Ur Leukocyte Esterase NEGATIVE (NEGATIVE) Urine RBC 4-8 (0-2/HPF) Urine WBC 0-2 (0-5/HPF) Ur Epithelial Cells FEW (NONE-FEW) Urine Bacteria FEW (NEGATIVE) Meds: Medications Discontinued Medications Generic Name Dose Route Start Last Admin Trade Name Briseida PRN Reason Stop Dose Admin Iopamidol 50 ml 10/22/20 11:17 10/22/20 12:05 Iopamidol 755 Mg/Ml 500 Ml Multipack Bottle IVPUSH 10/22/20 11:18 50 ml ONETIME STA Administration - Re-Assessments/Exams Free Text/Narrative Re-Assessment/Exam: 10/22/20 12:[address] review no. Seen for some groundglass opacity. Patient had a history of Covid in the past. Spoke to patient FUNERAL DIRECTOR/EMBALMER and will start patient on hydrochlorothiazide and she will see the FUNERAL DIRECTOR/EMBALMER physician at this week. Departure - Departure Time of Disposition: 12:28 Disposition: Home, Self-Care 01 Condition: Good Clinical Impression: Chest pressure Prescriptions: hydroCHLOROthiazide [Hydrochlorothiazide] 12.5 mg PO DAILY 30 Days #30 tablet Instructions: Nonspecific Chest Pain, Adult Forms: ED Department Discharge Additional Instructions: The following information is given to patients seen in the emergency department who are being discharged to home. This information is to outline your options for follow-up care. We provide all patients seen in our emergency department with a follow-up referral. The need for follow-up, as well as the timing and circumstances, are variable depending upon the specifics of your emergency department visit. If you don't have a primary care physician on staff, we will provide you with a referral. We always advise you to contact your personal physician following an emergency department visit to inform them of the circumstance of the visit and for follow-up with them and/or the need for any referrals to a consulting specialist. The emergency department will also refer you to a specialist when appropriate. This referral assures that you have the opportunity for follow-up care with a specialist. All of these measure are taken in an effort to provide you with optimal care, which includes your follow-up. Under all circumstances we always encourage you to contact your private physician who remains a resource for coordinating your care. When calling for follow-up care, please make the office aware that this follow-up is from your recent emergency room visit. If for any reason you are refused follow-up, please contact the [facility] Emergency Department at and asked to speak to the emergency department charge nurse. Please follow up with your primary care physician. If you do not have a primary care physician, see below: [facility] [address] [place] [id number] [facility] [address], [place] [address] We spoke to your FUNERAL DIRECTOR/EMBALMER physician Dr. Ng we agreed to place you on hydroc hlorothiazide which is a blood pressure medication this medication may cause you to urinate quite frequently. Please continue take your medication to you see your primary care physician. If you have any other complaints or concerning findings please return to the ED. Sepsis Event Note (ED) - Focused Exam Vital Signs: Vital Signs Temp Pulse Resp BP Pulse Ox 10/22/20 12:22 64 18 159/104 H 98 10/22/20 09:20 98 F 63 18 162/96 H 96 - Assessment/Plan Plan: Patient is a 30-year-old female who presents today for chest pressure increased blood pressure and lower extremity swelling. Patient meets the a few months ago. Will check urine x-ray labs rule out preeclampsia as well.
[2020-10-22 10:21] LABS: BLOOD UREA NITROGEN,BUN 16 mg/dL (7.0-18.0); CARBON DIOXIDE,CO2 22.4 mmol/L (21.0-32.0); CHLORIDE,CL 107 mmol/L (98-107); GLUCOSE RANDOM 82 mg/dL (74-106); LIPASE 102 U/L (73-393); POTASSIUM,K 4.1 mmol/L (3.5-5.1); SODIUM,NA 142 mmol/L (136-145)
--- NOTE | 2020-10-22 10:34 | CR ---
INDICATION: Chest pressure. TECHNIQUE: PA and lateral. COMPARISON: None. FINDINGS: Lungs low in volume with crowded markings in the bases. No obvious infiltrate. No pleural effusion. Heart size and pulmonary vasculature within normal limits, allowing for the shallow inspiration. No significant bony abnormality. IMPRESSION: Negative chest, allowing for shallow inspiration. Dictated by Joaquin Cedeno MD @ Oct 22 2020 10:33AM Signed by Dr. Joaquin Cedeno @ Oct 22 2020 10:33AM
[2020-10-22] MEDS ORDERED: Iopamidol 755 MG/ML 500 ML Multipack Bottle IVPUSH STA (11:17)
--- NOTE | 2020-10-22 12:04 | CT ---
INDICATION: Recent , chest pain and pressure, elevated D-dimer. COMPARISON: Chest radiograph 10/22/2020. TECHNIQUE: CT of the chest with 50 cc of Isovue 370 IV contrast. Coronal and sagittal reconstructions. 3D post processing was performed. FINDINGS: Heart size upper limits of normal. Normal caliber thoracic aorta and central pulmonary arteries. Negative for acute pulmonary embolism. No pericardial effusion. No thoracic lymphadenopathy. Low lung volumes. There are scattered small ground-glass opacities throughout the lungs bilaterally which are likely infectious or inflammatory. These have a perihilar predominance. No dense consolidation. No pleural effusion or pneumothorax. No pulmonary nodules identified. No central endobronchial lesion. The thyroid gland is normal in appearance. Cholecystectomy. The spleen is enlarged measuring 14.9 cm in AP dimension. The visualized upper abdomen is otherwise unremarkable. The bones are unremarkable. IMPRESSION: 1. Negative for acute pulmonary embolism. 2. Bilateral perihilar predominant ground-glass opacities may be infectious or inflammatory. 3. Splenomegaly. Please note that all CT scans at this facility use dose modulation, iterative reconstruction, and/or weight-based dosing when appropriate to reduce radiation dose to as low as reasonably achievable. Dictated by Sully Serrano MD @ Oct 22 2020 11:55AM Signed by Dr. Sully Serrano @ Oct 22 2020 12:02PM
[2020-10-22 12:58] VITALS: BP 150/109; PULSE 66
== END 2020-10-22 13:00 | disposition home or self-care (01) ==
LOC: MW.ED 09:19
DX: R07.89 Other chest pain (principal); E66.9 Obesity, unspecified; Z68.42 Body mass index [BMI] 45.0-49.9, adult
CPT/HCPCS: 36415; 71046; 71275; 80053; 81001; 82550; 83690; 83735; 84100; 84484; 85025; 85379; 93005; 99285; Q9967